=== PATIENT | female | born 1945 | race Caucasian/White ===

== ENCOUNTER 2016-08-07 07:29 | Inpatient (IN) ==
[2016-08-07] MEDS ORDERED: ATROPINE 1 MG/10 ML SYRINGE IV STA (07:38)
--- NOTE | 2016-08-07 07:43 | Emergency Department Note ---
Arrival - Arrival Chief Complaint: Syncope Stated Complaint: near syncope ED Nursing Triage Note: c/o having near syncope episode prior to arrival, denies having chest pain ,+ SOB., States "I feel like I am going to pass out that is coming and going " , " there is no ryme or reason for this", + nausea, Mode of Arrival: Stretcher Limitations: No Limitations Source: Patient Time Seen by Provider: 08/07/16 07:38 - History of Present Illness HPI Narrative: This 70-year-old white female presents with 1 month of increasingly more frequent periods of spontaneous near syncope irregardless if at rest or doing an activity. Today however she took her pulse while having 1 of these particularly severe and prolonged spells and found her heart rate to be in the 30s. EMS confirmed this on arrival at her residence and gave her a milligram of atropine at that time. The patient relates that at no time has she had any chest pain, shortness of breath, diaphoresis, nausea, or annia vomiting in association with these episodes. She relates also that she had a fall in last 2 days associated with this and now complains of bilateral shoulder pain and bilateral hip discomfort. She states she did hit her head but denies any serious pain with the incident or LOC. She is yet to pass out completely. Of note the history was difficult to obtain as the patient would not answer any queries directly currently at rest she is in no acute distress. Onset (ago): month(s) (Patient presents 1 month since onset of symptoms.) Allergies/Adverse Reactions: Allergies Allergy/AdvReac Type Severity Reaction Status Date / Time ciprofloxacin [From Cipro] Allergy Severe Swelling Verified 06/03/15 10:37 of Lip/Tongue/Throat ramipril [From Altace] Allergy Severe Cough Verified 06/03/15 10:38 rofecoxib [From Vioxx] Allergy Severe Swelling Verified 06/03/15 10:35 of Lip/Tongue/Throat clarithromycin [From Biaxin] Allergy Unknown Unknown/Unable Verified 06/03/15 10 :37 to obtain Penicillins Allergy Unknown Unknown/Unable Verified 06/03/15 10:35 to obtain PERSERVATIVES IN EYE GTTS Allergy Severe EYE Uncoded 06/03/15 10:38 SWELLING Home Medications: Home Medications Medication Instructions Recorded Confirmed Type Levothyroxine Tab [Synthroid Tab] 150 mcg PO DAILY 06/03/15 06/18/15 History Losartan/Hctz 50-12.5 [Hyzaar 1 tablet PO DAILY 06/03/15 06/18/15 History 50-12.5] Meloxicam 1 tablet PO DAILY 06/03/15 06/18/15 History Oxybutynin [Ditropan] 1 tablet PO DAILY 06/03/15 06/18/15 History Simvastatin 20 mg PO BEDTIME 06/03/15 06/18/15 History buPROPion HCl [Bupropion HCl Sr] 150 mg PO DAILY 06/03/15 06/18/15 History HYDROcodone/ACETAMIN 7.5-325 1 tablet PO Q4H PRN #0 tablet 06/20/15 Rx [[place] 7.5-325] HYDROcodone/ACETAMIN 7.5-325 2 tablet PO Q4H PRN #0 tablet 06/20/15 Rx [[place] 7.5-325] Review of System - Review of System 12 point system: reviewed and no additional remarkable complaints except as stated - Review of System Constitutional: Present: as per HPI Respiratory: Present: as per HPI Cardiovascular: Present: as per HPI Gastrointestinal: Present: as per HPI Medical,Surgical,& Family Hx - Medical History Cardio: History of: Hypertension HEENT: History of: Eye Problem (DRY), HEENT Problems (MEDIPORT INSERTION AND REMOVAL) Endocrine: History of: Thyroid Disorder (CANCER) Rheumatology: History of;: Rheumatoid Arthritis (R KNEE) Respiratory: History of: Respiratory Problems (SARCOID SPOTS UPPER PART LUNG HAD LUNG BX) Genitourinary: History of: Kidney Stones, Problems (UTI-HX) Gastrointestinal: History of: GI Problems (H PYLORIC GASTIRITIS) Reproductive: History of: Breast Cancer (RIGHT BREAST CHEMO RADIATION) - Surgical History Thoracic Surgeries: Surgical HX of;: Lithotripsy HEENT Surgeries: Surgical HX of: Eye Surgery (CATARACTS), Thyroid Surgery ( TOTAL THYROID), Tonsilectomy & Adenoidectomy Abdominal Surgeries: Surgical HX of: Appendectomy, Colonoscopy, EGD (ESOPHAGEAL DILATATION) Reproductive Surgeries: Surgical HX of;: Breast Surgery (LUMPECTOMY R BREAST), Hysterectomy Orthopedic Surgeries: Surgical HX of;: Total Knee Replacement (RIGHT) - Family History Family History: Reports;: Family Diabetes (MOM GRANDMOTHER 3 AUNTS), Family Stroke (MOM) - Social History Smoking Status: Never smoker Frequency of Alcohol Use: None Type of Drug Use: None Exam Physical Examination: GENERAL: Well developed, well nourished elderly white female in no acute distress. HEENT: Normocephalic. No trauma. Moist mucous membranes. EOMI. PERRLA. ENT NML NECK: Supple. No adenopathy. CARDIAC: irregular. No murmurs. Heart rate 32 CHEST: Bibasilar Velcro rales. No respiratory distress. O2 sat 99% ABDOMEN: Soft. Nontender. Active bowel sounds. EXTREMITIES: No trauma. Limitation in range of motion of both shoulders and hips due to discomfort. Lower extremities reveal no shortening or external rotation. No pedal edema. SKIN: No diaphoresis. No rash. NEURO: Alert. Oriented 3. Motor, sensory, vibratory intact. No focal deficits. Vital Signs: Vital Signs Temperature 97.8 F 08/07/16 07:30 Pulse Rate 78 08/07/16 08:57 Respiratory Rate 16 08/07/16 08:57 Blood Pressure 111/78 08/07/16 08:57 O2 Sat by Pulse Oximetry 100 08/07/16 08:57 Course Course Narrative: Patient given 1 mg of atropine with acceleration of rate to the 80s. This was similar to the experience of EMS in the field; however, the patient's rate deteriorated back to baseline in the 30s after approximately 15 minutes per EMS. Heart rate now 1 hour post dose is still in 70s peer Patient was to complete all her x-rays - Reevaluation(s) Reevaluation #1: Advised patient she will need hospitalization for further evaluation of her rhythm. - Consultations Consultation #1: Discussed with Dr. Garcia who will admit for further evaluation treatment peer Results - Labs CBC & BMP: 08/07/16 07:49 08/07/16 07:49 Labs: I reviewed the laboratory noted the negative cardiac's excepting for the greatly elevated BMP - Impressions EKG: Ventricular rhythm at rate of 32 with atrial rate of 64 consistent with complete heart block. diffuse nonspecific ST changes but no acute injury pattern noted - Diagnostic Findings Procedure: Chest x-ray: image reviewed by me, report reviewed by me ( Cardiomegaly with evidence of congestive failure as well as sarcoid changes including hilar adenopathy), CT: image reviewed by me, report reviewed by me ( Head: No acute injury noted), X-ray: image reviewed by me, report reviewed by me (Right shoulder: No acute injury noted) Disposition Clinical Impression: Complete heart block, Congestive heart failure, Pulmonary sarcoidosis, Right shoulder contusion Case discussed with: patient, patient's family Disposition: Still a Patient Condition: Guarded Time of Disposition: 09:19
[2016-08-07] MEDS ORDERED: ATROPINE 1 MG/1 ML VIAL ONE (07:48)
[2016-08-07 07:56] LABS: Basophils % 0.3 % (0.0-0.8); Eosinophils % 0.4 % (0.00-10.9); Hematocrit 42.5 VOL% (35.7-47.0); Hemoglobin 14.1 GM/DL (12.0-16.0); Immature Granulocytes % 0.5 %; Immature Granulocytes Absolute 0.05 #; Lymphocytes # 0.4 10*3/uL (1.4-4.0); Lymphocytes % 4.1 % (21.3-54.2); Mean Corpuscular HGB Conc 33.2 GM/DL (32-36); Mean Corpuscular Hemoglobin 29 PG (27-34); Mean Corpuscular Volume 88.4 FL (87-102); Mean Platelet Volume 10.3 FL (9.6-12.0); Monocytes # 0.6 10*3/uL (0.11-0.8); Monocytes % 6.7 % (1.7-12.7); Neutrophils # 8.2 10*3/uL (1.4-7.4); Platelet Count 225 T/CUMM (130-400); Red Blood Count 4.81 MC/CUMM (3.8-5.5); Red Cell Distribution Width 13.3 % (9.3-17.3); White Blood Count 9.4 T/CUMM (4-12)
[2016-08-07 08:04] LABS: PT Patient Result 10.8 SECS
[2016-08-07 08:19] LABS: Apearance,Urine CLEAR (Clear); Bacteria,Urine Occasional /HPF (Few); Bilirubin,Urine Negative (Negative); Blood, Urine Small mg/dL (Negative); Glucose,Urine (UA) Negative (Negative); Ketones,Urine Negative (Negative); Mucus,Urine Occasional /LPF (Occasional); Nitrite,Urine Negative (Negative); Protein,Urine Negative; RBC,Urine 44 /HPF (0-4); Squamous Epithelial Cell,Urine Occasional /HPF (0-10); Urine Color Yellow (Yellow); Urine Specific Gravity 1.017 (1.001-1.035); Urine Urobilinogen < 2.0 EU/DL (0.2-1.0); WBC,Urine 1 /HPF (0-6)
[2016-08-07 08:22] LABS: Eosinophils 1 % (0-10); Hypochromasia 1+; Lymphocytes 6 % (20-55); Platelet Estimate Adequate; Segmented Neutrophils 85 % (50-85); Total Cells Counted 100
[2016-08-07 08:34] LABS: Barbiturates Screen,Urine Negative (Negative); Benzodiazepines Screen,Urine Negative (Negative); Cannabinoid Screen,Urine Negative (Negative); Opiate Screen,Urine Negative (Negative); Phencyclidine Screen,Urine Negative (Negative)
[2016-08-07 08:36] LABS: Alanine Aminotransferase 204 U/L (13-56); Albumin 3.4 G/DL (3.4-5.0); Alkaline Phosphatase 84 U/L (45-117); Aspartate Amino Transferase 106 U/L (0-37); Blood Urea Nitrogen 25 MG/DL (7-18); Glucose 131 MG/DL (74-106); Osmolality,Calculated 288.1 MOS/KG (273-304); Sodium 142 MMOL/L (136-145); Total Protein 5.8 G/DL (6.4-8.3); Troponin I Only 0.034 NG/ML (0.00-0.045)
--- NOTE | 2016-08-07 08:37 | XRay Report ---
Portable chest Date: 08/07/2016 Clinical history: Shortness of breath Comparison: 03/14/2014 Technique: Portable AP sitting chest Findings: The heart is minimally enlarged with uncoiling of the aorta. 110 mm hiatal hernia. Progressive diffuse parenchymal findings especially at the lung bases with small pleural effusions. Stable mediastinum with postoperative findings in the right axilla. Osteopenia with degenerative changes. Impression: Minimal cardiomegaly with 110 mm hiatal hernia. Progressive parenchymal findings which can be seen with mild CHF, pneumonitis, etc. Patient reportedly has a history of sarcoidosis with CT proven lymphadenopathy. PROCEDURE INTERPRETED AT [facility] DEPARTMENT OF RADIOLOGY Final Report Signed by: Dr. June Millard
--- NOTE | 2016-08-07 08:39 | EKG Report ---
Stationary ECG Study [facility] ER Test Date: 08/07/2016 7:41:40 AM Pat Name: JOVANY ELLER Department: Room: Gender: F Tip Puncher: : 1945 Requested by: Nicolas Eubanks Order Number: [id number] Reading MD: GLADYS ALCANTAR Intervals [place] Rate: 32 P: 999 NE: 0 QRS: 132 QRSD: 148 T: 250 QT: 512 QTc: 390 Interpretive Statements NORMAL SINUS RHYTHM WITH COMPLETE HEART BLOCK AND AV DISSOCIATION WITH IDIOVENTRICULAR ESCAPE RHYTHM Electronically Signed On 08-07-16 10:10:07 CDT by GLADYS ALCANTAR [email or web address]
--- NOTE | 2016-08-07 08:41 | CT Report ---
Referring physician: Nicolas Jha Exam: CT brain without contrast Date: 08/07/2016 Comparison: None Reason: Head injury, status post fall Technique: Axial images of the head were obtained without the use of contrast. Total DLP was 1042.60 mGy*cm. Findings: No hydrocephalus or midline shift is present. There is no evidence of an acute infarction, recent intracranial hemorrhage or abnormal mass effect. Diffuse atrophy and cerebral hypodensities. The osseous structures appear intact. The mastoid air cells and visualized paranasal sinuses are clear. Impression: No acute intracranial abnormality is identified. Cerebral atrophy and microvascular disease. The CT exam was performed using one or more of the following dose reduction techniques: Automated exposure control and adjustment of the mA and/or kV according to patient size. PROCEDURE INTERPRETED AT [facility] DEPARTMENT OF RADIOLOGY Final Report Signed by: Dr. June Millard
--- NOTE | 2016-08-07 08:58 | XRay Report ---
Exam: XR shoulder 2V RT Date: 08/07/2016 8:18 AM Comparison: None Indication: Right shoulder pain Technique:[2 view right shoulder] Findings: AC joint arthropathy with inferior osteophytes. Postoperative findings in the right axilla. No definite fracture or dislocation. Impression: AC joint arthropathy with inferior osteophytes. No definite fracture or dislocation. PROCEDURE INTERPRETED AT [facility] DEPARTMENT OF RADIOLOGY Final Report Signed by: Dr. June Millard
[2016-08-07] MEDS ORDERED: FUROSEMIDE 40 MG/4 ML VIAL IV STA (09:11)
[2016-08-07] MEDS ORDERED: ONDANSETRON 4 MG/2 ML VIAL IV PRN (09:24)
[2016-08-07] MEDS ORDERED: FUROSEMIDE 40 MG/4 ML VIAL ONE (09:25)
--- NOTE | 2016-08-07 12:05 | Cardiology History & Physical ---
Assessment and Plan (1) Third degree heart block Status: Acute Assessment and plan: The patient had transient third-degree heart block and is now back to normal sinus rhythm. She is going to need a dual-chamber pacemaker. Given that she is currently in sinus rhythm we can plan to do this electively on Tuesday. Current Visit: Yes (2) Near syncope Status: Acute Assessment and plan: These spells are secondary to third-degree heart block. She is going to need dual-chamber pacemaker. Current Visit: Yes (3) Hypertension Status: Acute Current Visit: No (4) Sarcoid Status: Acute Current Visit: No (5) Right shoulder pain Status: Acute Assessment and plan: She fell and hit her right shoulder. X-ray shows no acute abnormality. If the symptoms persist we will get orthopedics to assist. Current Visit: Yes History of Present Illness History of present illness: Ms. Gallegos is a 70 year old female who has a history of hypertension, hyperlipidemia, sarcoidosis, and gastroesophageal reflux. For the last several months she has been having episodic spells of profound lightheadedness and near syncope. There are no specific exacerbating or relieving factors. The spells seem to be increasing in frequency and have been slowly progressive. She is not completely lost consciousness. She thought these spells were happening secondary to hypoglycemia. However, recently during 1 of these spells she checked her pulse and it was in the 30s. EMS was contacted and she was taken to the emergency room for treatment. She received atropine and her heart rate went back to normal. EKG during the period of bradycardia shows what appears to be a third-degree AV block. Her heart rate is generally in the 30s with a ventricular escape when she has the heart block. Right now she is in sinus rhythm with first-degree AV block. She denies any history of coronary artery disease or angina. She has not had any palpitations or syncope. She denies any fever, or chills. She denies any nausea or vomiting. She has no orthopnea , PND, or peripheral edema. She tells me that when she has 1 of these spells if she sits down and bends over with her head near the floor the spell would generally resolve. When the symptoms occur they are quite severe. In fact today when she went to get on a stool to bend over she lost her balance and fell on her right shoulder and now has some impairment in motion in the shoulder. X-ray of the shoulder was benign. She also had CT of the head which was benign. She is not on any rate slowing medications. Current Medications Hydrocodone Bitart/Acetaminophen ([place] 7.5-325) 1 tablet PO Q4H PRN PRN Reason: Pain Moderate (4-7) HCTZ/Losartan Potassium (Hyzaar 50-12.5) 1 tablet PO DAILY [facility] Ondansetron HCl (Zofran Inj) 4 mg IV Q4H PRN PRN Reason: Nausea/Vomiting Pantoprazole Sodium (Protonix Tab) 40 mg PO DAILY [facility] Simvastatin (Zocor) 20 mg PO BEDTIME [facility] Home Medications Medication Instructions Recorded Confirmed Type Losartan/Hctz 50-12.5 [Hyzaar 1 tablet PO DAILY 06/03/15 08/07/16 History 50-12.5] Meloxicam 1 tablet PO DAILY PRN 06/03/15 08/07/16 History Oxybutynin [Ditropan] 5 mg PO DAILY 06/03/15 08/07/16 History Simvastatin 20 mg PO DAILY 06/03/15 08/07/16 History buPROPion HCl [Bupropion HCl Sr] 150 mg PO DAILY 06/03/15 08/07/16 History Betamethasone Valerate 1 applic TOP BID PRN 08/07/16 08/07/16 History [Betamethasone Valerate 0.1% Lotion] Levothyroxine Tab [Synthroid Tab] 137 mcg PO DAILY@0700 08/07/16 08/07/16 History Metronidazole 1% Gel [Metrogel 1% 1 applic TOP DAILY PRN 08/07/16 08/07/16 History Gel] Allergies Allergy/AdvReac Type Severity Reaction Status Date / Time ciprofloxacin [From Cipro] Allergy Severe Swelling Verified 06/03/15 10:37 of Lip/Tongue/Throat ramipril [From Altace] Allergy Severe Cough Verified 06/03/15 10:38 rofecoxib [From Vioxx] Allergy Severe Swelling Verified 06/03/15 10:35 of Lip/Tongue/Throat clarithromycin [From Biaxin] Allergy Unknown Unknown/Unable Verified 06/03/15 10 :37 to obtain Penicillins Allergy Unknown Unknown/Unable Verified 06/03/15 10:35 to obtain PERSERVATIVES IN EYE GTTS Allergy Severe EYE Uncoded 06/03/15 10:38 SWELLING 12 point system: reviewed and no additional remarkable complaints except as stated Medical,Surgical,& Family Hx - Medical History Cardio: History of: Hypertension Psychological: History of: Anxiety Disorders (r/t cancer and concerns of new dx of lung CA) Neurology: History of: TIA, Vertigo HEENT: History of: Eye Problem (DRY), HEENT Problems (MEDIPORT INSERTION AND REMOVAL) Endocrine: History of: Thyroid Disorder (CANCER) Rheumatology: History of;: Rheumatoid Arthritis (R KNEE) Respiratory: History of: Lung Cancer (Possible r/t L lung nodule follow by oncology PET scan this year), Respiratory Problems (SARCOID SPOTS UPPER PART LUNG HAD LUNG BX) Genitourinary: History of: Kidney Stones, Problems (UTI-HX) Gastrointestinal: History of: GI Problems (H PYLORIC GASTIRITIS) Musculoskeletal: History of: Osteoporosis (Shoulders and hips) Reproductive: History of: Breast Cancer (RIGHT BREAST CHEMO RADIATION) Other: History of: Skin Problems (Recurrent Malar Rash) - Surgical History Thoracic Surgeries: Surgical HX of;: Lithotripsy Patient denies;: Lobectomy Neurologic Surgeries: Patient denies: Neurologic Surgery HEENT Surgeries: Surgical HX of: Eye Surgery (CATARACTS), Thyroid Surgery ( TOTAL THYROID), Tonsilectomy & Adenoidectomy Abdominal Surgeries: Surgical HX of: Appendectomy, Colonoscopy, EGD (ESOPHAGEAL DILATATION) Reproductive Surgeries: Surgical HX of;: Breast Surgery (LUMPECTOMY R BREAST), Hysterectomy Orthopedic Surgeries: Surgical HX of;: Total Knee Replacement (RIGHT) - Family History Family History: Reports;: Family Diabetes (MOM GRANDMOTHER 3 AUNTS), Family Stroke (MOM) - Social History Smoking Status: Never smoker Frequency of Alcohol Use: Occasionally Type of Drug Use: None Cardiology Physical Exam - Constitutional Vitals: Vital Signs Temp Pulse Resp BP Pulse Ox 97.7 F 82 20 114/73 93 L 08/07/16 10:05 08/07/16 10:05 08/07/16 10:05 08/07/16 10:05 08/07/16 10:05 Intake and Output 08/06/16 08/07/16 08/07/16 23:59 07:59 15:59 Other: Weight 86.183 kg 87.543 kg Patient Weight 08/07/16 23:59 Weight 87.543 kg Exam: General: Appears well developed, well nourished, no apparent distress HEENT: Normocephalic, atraumatic Neck: Supple Neck, Midline Trachea, No Bruit, No JVD Cardiac: Regular rhythm, 2 out of 6 murmur, no gallop, no rub Lungs: Clear to auscultation, No Wheeze, Rales, Rhonchi Neuro: Cranial Nerve 2-12 Intact, Motor Function Grossly Intact Abdomen: Soft, Active Bowel Sounds, No Masses, No Pulsations/Bruits Skin: Normal color, no rash Extremities: No Clubbing, No Cyanosis, No Edema, Normal Upper Extr. Pulses Musculoskeletal: No acute abnormality noted Psychiatric: The patient does not appear to be anxious or depressed Result/EKG - Labs CBC & BMP: 08/07/16 07:49 08/07/16 07:49 Lab Results: I have reviewed the past 24 hour labs Labs: Laboratory Results - last 24 hr 08/07/16 08/07/16 08/07/16 07:49 07:49 07:49 WBC 9.4 RBC 4.81 Hgb 14.1 Hct 42.5 MCV 88.4 MCH 29 MCHC 33.2 RDW 13.3 Plt Count 225 MPV 10.3 Neut % (Auto) 88.0 H Lymph % (Auto) 4.1 L [place] % (Auto) 6.7 Eos % (Auto) 0.4 Baso % (Auto) 0.3 Neut # (Auto) 8.2 H Lymph # (Auto) 0.4 L [place] # (Auto) 0.6 Eos # (Auto) 0.0 Baso # (Auto) 0.0 Total Counted 100 Immature Gran % 0.5 Nucleated RBC % 0.0 Immature Gran # 0.05 Segmented Neutrophils 85 Lymphocytes 6 L Monocytes 8 Eosinophils 1 Nucleated RBCs # 0.00 Platelet Estimate Adequate Hypochromasia 1+ INR 1.0 PT Patient/Control Mix 10.8 Sodium 142 Potassium 4.0 Chloride 108 H Carbon Dioxide 27 Anion Gap 11.0 BUN 25 H Creatinine 0.90 GFR Calculation 71 BUN/Creatinine Ratio 27.00 H Glucose 131 H Calculated Osmolality 288.1 Calcium 9.0 Total Bilirubin 0.90 AST 106 H ALT 204 H Alkaline Phosphatase 84 Total Creatine Kinase 62 CK-MB (CK-2) 1.4 Troponin I 0.034 B-Natriuretic Peptide Total Protein 5.8 L Albumin 3.4 Globulin 2.4 Albumin/Globulin Ratio 1.4 Urine Color Urine Appearance Urine pH Ur Specific [place] Urine Protein Urine Glucose (UA) Urine Ketones Urine Blood Urine Nitrate Urine Bilirubin Urine Urobilinogen Urine Leukocytes Urine RBC Urine WBC Ur Squamous Epith Cells Urine Bacteria Urine Mucus Ur Culture Indicated? Urine Opiates Screen Ur Barbiturates Screen Ur Phencyclidine Scrn U Amphetamine/Methamph U Benzodiazepines Scrn U Cocaine Metab Screen U Cannabinoids Screen 08/07/16 08/07/16 08/07/16 07:49 08:03 08:03 WBC RBC Hgb Hct MCV MCH MCHC RDW Plt Count MPV Neut % (Auto) Lymph % (Auto) [place] % (Auto) Eos % (Auto) Baso % (Auto) Neut # (Auto) Lymph # (Auto) [place] # (Auto) Eos # (Auto) Baso # (Auto) Total Counted Immature Gran % Nucleated RBC % Immature Gran # Segmented Neutrophils Lymphocytes Monocytes Eosinophils Nucleated RBCs # Platelet Estimate Hypochromasia INR PT Patient/Control Mix Sodium Potassium Chloride Carbon Dioxide Anion Gap BUN Creatinine GFR Calculation BUN/Creatinine Ratio Glucose Calculated Osmolality Calcium Total Bilirubin AST ALT Alkaline Phosphatase Total Creatine Kinase CK-MB (CK-2) Troponin I B-Natriuretic Peptide 650 H Total Protein Albumin Globulin Albumin/Globulin Ratio Urine Color Yellow Urine Appearance Clear Urine pH 6.0 Ur Specific [place] 1.017 Urine Protein Negative Urine Glucose (UA) Negative Urine Ketones Negative Urine Blood Small Urine Nitrate Negative Urine Bilirubin Negative Urine Urobilinogen < 2.0 H Urine Leukocytes Negative Urine RBC 44 Urine WBC 1 Ur Squamous Epith Cells Occasional Urine Bacteria Occasional Urine Mucus Occasional Ur Culture Indicated? Not indicated Urine Opiates Screen Negative Ur Barbiturates Screen Negative Ur Phencyclidine Scrn Negative U Amphetamine/Methamph Negative U Benzodiazepines Scrn Negative U Cocaine Metab Screen Negative U Cannabinoids Screen Negative - EKG EKG results: interpreted by me
[2016-08-07] MEDS ORDERED: ATROPINE 1 MG/10 ML SYRINGE IV PRN (12:08)
[2016-08-07 12:35] LABS: Free T4 (Free Thyroxine) 1.68 NG/DL (0.76-1.46); Thyroid Stimulating Hormone 0.241 uIU/ml (0.358-3.74)
[2016-08-07] MEDS: SIMVASTATIN 20 MG TABLET PO SCH (21:09)
[2016-08-08] MEDS ORDERED: ATROPINE 1 MG/1 ML VIAL IV ONE (05:44)
[2016-08-08] MEDS: LOSARTAN/HCTZ 50-12.5 MG TABLET PO SCH (09:05)
[2016-08-08] MEDS: PANTOPRAZOLE 40 MG TABLET PO SCH (09:05)
[2016-08-08] MEDS ORDERED: DIAZEPAM 5 MG TABLET PO ONE (10:13)
--- NOTE | 2016-08-08 10:18 | Cardiology Progress Note ---
Assessment and Plan (1) Third degree heart block Status: Acute Assessment and plan: The patient had a very long pause last night. I was planning to wait and do her pacemaker electively on Tuesday, but in light of this I think we need to go ahead and do it urgently at this time. Current Visit: Yes (2) Near syncope Status: Acute Assessment and plan: These spells are secondary to third-degree heart block. She is going to need dual-chamber pacemaker. Current Visit: Yes (3) Hypertension Status: Acute Current Visit: No (4) Sarcoid Status: Acute Current Visit: No (5) Right shoulder pain Status: Acute Assessment and plan: She fell and hit her right shoulder. X-ray shows no acute abnormality. Her shoulder is better today but is still sore. Current Visit: Yes Cardiology - PN: Subj Interval history: The patient had recurrence episodes of third-degree AV block. She had up to a 13 second pause last night. She responded to adenosine. I was planning to do her pacemaker electively tomorrow, but in light of her recurrent pauses, I think we need to go ahead and do this today. We discussed this and the patient understands and wishes to proceed. Current Medications Hydrocodone Bitart/Acetaminophen ([place] 7.5-325) 1 tablet PO Q4H PRN PRN Reason: Pain Moderate (4-7) Last Admin: 08/07/16 23:34 Dose: 1 tablet Atropine Sulfate () 1 mg IV PRN PRN PRN Reason: Heartrate < 40 Diazepam (Valium Tab) 10 mg PO ONCE ONE Stop: 08/08/16 10:14 HCTZ/Losartan Potassium (Hyzaar 50-12.5) 1 tablet PO DAILY [facility] Last Admin: 08/08/16 09:05 Dose: 1 tablet Sodium Chloride (Ns) 1,000 mls @ 75 mls/hr IV .[id number] [facility] Ondansetron HCl (Zofran Inj) 4 mg IV Q4H PRN PRN Reason: Nausea/Vomiting Pantoprazole Sodium (Protonix Tab) 40 mg PO DAILY [facility] Last Admin: 08/08/16 09:05 Dose: 40 mg Simvastatin (Zocor) 20 mg PO BEDTIME [facility] Last Admin: 08/07/16 21:09 Dose: Not Given Exam (Progress Note) - Constitutional Vitals: Period Temp Pulse Resp BP Sys/Sanchez Pulse Ox Last 24 Hr 98 F-99.4 F 78-85 18-20 102-125/53-80 93-97 Exam: General: Appears well developed, well nourished, no apparent distress HEENT: Normocephalic, atraumatic Neck: Supple Neck, Midline Trachea, No Bruit, No JVD Cardiac: Regular rhythm, 2/6 systolic murmur, no gallop, no rub Lungs: Clear to auscultation, No Wheeze, Rales, Rhonchi Neuro: Cranial Nerve 2-12 Intact, Motor Function Grossly Intact Abdomen: Soft, Active Bowel Sounds, No Masses, No Pulsations/Bruits Skin: Normal color, no rash Extremities: No Clubbing, No Cyanosis, No Edema, Normal Upper Extr. Pulses Musculoskeletal: No acute abnormality noted Psychiatric: The patient does not appear to be anxious or depressed Result/EKG - Labs CBC & BMP: 08/07/16 07:49 08/07/16 07:49 Lab Results: I have reviewed the past 24 hour labs Labs: Laboratory Results - last 24 hr 08/07/16 07:49 Free T4 1.68 H TSH 3rd Generation 0.241 L - EKG EKG results: interpreted by me
[2016-08-08] MEDS ORDERED: LIDOCAINE 1%/EPI INJ 20 ML VIAL ONE (10:47)
[2016-08-08] MEDS ORDERED: VANCOMYCIN 500 MG VIAL ONE (10:47)
[2016-08-08] MEDS: SODIUM CHLORIDE 0.9% 1,000 ML IV SCH (11:04)
[2016-08-08] MEDS ORDERED: HYDROmorphone 2 MG/1 ML VIAL ONE (11:29)
[2016-08-08] MEDS ORDERED: MIDAZOLAM 2 MG/2 ML VIAL ONE (11:29)
[2016-08-08] MEDS ORDERED: TISSUE ADHESIVE 1 EACH APPLICATOR TOP ONE (11:56)
--- NOTE | 2016-08-08 12:13 | Cardiac Pacemaker ---
- Preoperative diagnosis Date of Procedure:: 08/08/16 Preoperative Diagnosis: Documented nonreversible symptomatic bradycardia due to , third degree atrioventricular block Procedure: The patient has severe symptomatic third-degree AV block with up to 13 second documented pauses and is undergoing a dual-chamber pacemaker implant at this time. Procedures performed 1. Percutaneous left subclavian venotomy with sheath placement 2. Placement of atrial and ventricular leads with threshold testing 3. Placement of dual-chamber permanent (note, this is an MRI compatible pacemaker system) The patient had symptomatic bradycardia due to high grade heart block/sinus node dysfunction and needed a dual-chamber pacemaker. After informed consent was obtained was taken to catheter prepped and draped in usual sterile manner. We used minimal sedation for this case. We placed 2 J-tipped wires in the left subclavian vein using a modified Seldinger technique in the usual fashion. With then a pocket approximately 2 cm below the left clavicular border using blunt and sharp dissection as well as electrocautery. We then pulled our leads into the pocket from below. Using safe sheaths, we placed a Medtronic 5076-58 centimeter ventricular lead into the right ventricular apex and secured it with a helical coil. Serial number on the ventricular lead is [id number]. Excellent capture and sensing thresholds were achieved. We then used a Medtronic 5076-52 centimeter lead in the atrium. Serial number on the atrial lead was [id number]. Excellent capture and sensing thresholds were achieved. After the sheaths had been removed, we sutured the leads to the pocket floor using Ethibond suture. We then rinsed the pocket with antibiotic solution and then connected the leads to a Medtronic Advisa DR MRI compatible pacemaker model [id number]. Serial number on the pacemaker is [id number]. After the device give been connected to the leads, it was placed in the pocket and sutured pocket floor with Ethibond suture. We then closed the pocket 3 layers using Vicryl suture. We then applied a topical adhesive followed by Steri-Strips and a dressing. There were no apparent complications during the procedure. The patient remained stable throughout the procedure and will now be transferred back to her room for recovery. Anesthesia: minimal conscious sedation Surgeon / Physician: Froilan Garcia Estimated blood loss: minimal Condition: stable Disposition: floor - Medications / Follow-up
--- NOTE | 2016-08-08 12:40 | XRay Report ---
Portable chest Date: 08/08/2016 Clinical history: Lead placement Comparison: 08/07/2016 Technique: Portable AP sitting chest Findings: The heart is minimally enlarged with uncoiling of the aorta. Insertion of left subclavian atrioventricular pacemaker. No pneumothorax. Reduced parenchymal findings in the lungs. Postoperative findings in the right axilla with degenerative changes. Impression: Status post insertion of left subclavian atrioventricular pacemaker. No pneumothorax with improved mild CHF. PROCEDURE INTERPRETED AT [facility] DEPARTMENT OF RADIOLOGY Final Report Signed by: Dr. June Millard
--- NOTE | 2016-08-08 12:53 | EKG Report ---
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
[2016-08-08] MEDS: SIMVASTATIN 20 MG TABLET PO SCH (21:59)
[2016-08-09] MEDS: SODIUM CHLORIDE 0.9% 1,000 ML IV SCH (02:04)
--- NOTE | 2016-08-09 06:34 | EKG Report ---
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
[2016-08-09 07:58] VITALS: BP 111/83
[2016-08-09] MEDS: PANTOPRAZOLE 40 MG TABLET PO SCH (08:23)
[2016-08-09] MEDS: LOSARTAN/HCTZ 50-12.5 MG TABLET PO SCH (08:23)
--- NOTE | 2016-08-09 08:51 | Discharge Summary ---
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 Sutherland Ms. Gallegos, 70-year-old female presented to [facility] August 07, 2016 with near syncope. She has a past medical history of hypertension, hyperlipidemia, sarcoidosis and GERD. During her hospitalization, she was noted to have transient third-degree heart block. Subsequently, she had a dual-chamber pacemaker placed August 03, [address] Froilan Garcia. Post pacemaker placement, patient was transported back to the telemetry unit in stable condition. She has done well overnight and is without any complaints this morning. Pacemaker has been interrogated and appears to be functioning appropriately. Chest x-ray reveals correct lead placement. Post pacemaker instructions have been reviewed with the patient. She verbalizes understanding. She has been instructed to wear left arm sling until her follow- up appointment with Dr. Garcia. She verbalizes understanding. Pacemaker pocket looks good. She has been given a follow-up appointment with Dr. Garcia in 1 week. At that appointment her pacemaker will be interrogated and she will also have repeat chest x-ray. Patient is anxious for discharge home. Having felt that she has met maximal medical therapy, she will be discharged home in stable condition. Of note, patient's liver enzymes were elevated this hospitalization. AST 106 and ALT 204. Upon discharge, patient's simvastatin will be discontinued. She will have repeat LFTs drawn at her one-week follow-up appoint with Dr. Garcia. She will be discharged home on her preadmission medications. Patient verbalizes understanding of discharge instructions and discharge medications. Diagnosis - Discharge Diagnosis (1) Status post placement of cardiac pacemaker Status: Acute (2) Near syncope Status: Resolved (3) Third degree heart block Status: Resolved (4) Hypertension Status: Chronic (5) Sarcoid Status: Chronic Specialty Discharge - Follow Up or Referrals Follow up with: Froilan Garcia MD [Physician] - 1 Week (Patient will need a follow-up appointment with Dr. Garcia in 1 week with pacemaker interrogation, LFTs and chest x-ray. Patient prefers this appointment to be on a Tuesday, or Tuesday.) Discharge Plan - Discharge Data Disposition: Disch To Home/Self Care Condition at Discharge: Stable Discharge Diet: heart healthy Activity: other (Resume activity as tolerated with left arm sling intact until follow-up appointment with Dr. Garcia.) Hygiene: may shower Weight Bearing at Discharge: weight bear as tolerated Driving: not until seen by doctor Contact your physician if you experience:: fever over 101, Difficulty voiding, Redness or swelling, Nausea/Vomiting, Shortness of breath, Bleeding, pain uncontrolled by pain medications - Discharge Medications Continue Losartan/Hctz 50-12.5 [Hyzaar 50-12.5] 1 tablet PO DAILY Meloxicam 1 tablet PO DAILY PRN PRN Reason: Pain buPROPion HCl [Bupropion HCl Sr] 150 mg PO DAILY Oxybutynin [Ditropan] 5 mg PO DAILY Betamethasone Valerate [Betamethasone Valerate 0.1% Lotion] 1 applic TOP BID PRN PRN Reason: Agitation Metronidazole 1% Gel [Metrogel 1% Gel] 1 applic TOP DAILY PRN PRN Reason: Pain Levothyroxine Tab [Synthroid Tab] 137 mcg PO DAILY@0700 Discontinued Simvastatin 20 mg PO DAILY - Follow Up or Referral Follow Up: Froilan Garcia MD [Physician] - 1 Week (Patient will need a follow-up appointment with Dr. Garcia in 1 week with pacemaker interrogation, LFTs and chest x-ray. Patient prefers this appointment to be on a Tuesday, or Tuesday.) - Forms/Instructions Instructions: Pacemaker (DC) Exam - Constitutional Vitals: Period Temp Pulse Resp BP Sys/Sanchez Pulse Ox Last 24 Hr 97.1 F-100.6 F 72-93 18-20 99-124/67-83 93-98 Exam: General: Appears well with no apparent distress. Pleasant and cooperative. Appears comfortable. HEENT: PERRL, normocephalic, atraumatic. Mucous membranes moist. No jaundice noted. Conjunctiva moist and clear, sclerae anicteric Neck: No JVD/HJR, no thyromegaly or lymphadenopathy noted. No carotid bruit appreciated Cardiac: Regular rate and rhythm. No murmur rub or gallop. Lungs: Clear to auscultation without accessory muscle use to assist the respiratory pattern. Not requiring oxygen. Abdomen: Soft, bowel sounds normoactive. Nontender and nondistended. No abdominal bruit or thrill noted. No masses noted. Extremities: No clubbing, cyanosis noted. No edema noted. Upper extremity pulses 2+. Lower extremity pulses 2+. Capillary refill less than 3 seconds. Skin: No unusual lesions or rashes. No skin breakdown appreciated. Pacemaker pocket to left upper chest healing well. Neuro: Awake, alert and oriented 3. Moves all extremities well without hemiparesis or paralysis. No essential tremor is appreciated. Discharge Results Procedures and tests throughout hospitalization: Pending Orders 08/09/16 04:00 XR chest 2V IN AM Labs on day of discharge: Labs from last 24 hours 08/09/16 08/09/16 09:41 07:17 POC Glucose 134 H 102 - Imaging and Cardiology Cardiology Procedure: report reviewed by me Procedure: Chest x-ray: report reviewed by me DS: Provider Date of admission: 08/07/16 09:21 Primary care physician: Ilan Glass MD Attending physician on admission: Froilan Garcia MD Discharging clinician: Jackelin Killian NP Expected date of discharge: 08/09/16 <Leonel Dubois - Last Filed: 08/09/16 09:49> DS: Provider Primary care physician: Ilan Glass MD Patient examined and chart reviewed and discussed with nurse Jackelin Killian Pacer pocket looks good. No hematoma or discharge Telemetry shows normal pacing and sensing Pacer leads in good position on chest x-ray with no pneumo or infiltrate Home today Wound check and pacemaker follow-up with Dr. Garcia in 1 week Home meds as outlined
--- NOTE | 2016-08-09 08:58 | Physician Query Form ---
CLICK EDIT DOCUMENT TO SELECT QUERY ANSWER --> OK --> SIGN Taylor Cevallos RN, CCDS Certified Clinical Remote Broadcast Technician W) [phone] (f) [phone] [email or web address] PROVIDERS: Make your selection(s) from the choices in EACH section by typing an "x" and enter comments in the comment section. Please use your independent medical judgment in providing your response. This request does not imply that any particular answer is desired or expected. CLINICAL INDICATORS: (Providers should not edit this section) The medical record indicates that the patient was admitted with complete heart block, Impression in the ER also with "Congestive Heart Failure", "Bibasilar Velcro rales", BNP 650#, and was treated with 40 Mg of IV Lasix in the ER. ---- "Chest x-ray: image reviewed by me, report reviewed by me ( Cardiomegaly with evidence of congestive failure as well as sarcoid changes including hilar adenopathy)" Please provide further specificity regarding CHF. ACUITY: ( x) Acute ( ) Chronic ( ) Acute on Chronic ( ) Clinically unable to determine TYPE: ( ) Systolic (HFrEF - heart failure with reduced systolic function/EF) ( ) Diastolic (HFpEF - heart failure with preserved systolic function/EF) ( ) Combined Systolic/Diastolic ( x) Other, please specify: Secondary to bradycardia/heart block ( ) Clinically unable to determine ( ) The patient does NOT have CHF COMMENTS: PLEASE ALSO DOCUMENT RESPONSE IN PROGRESS NOTES AND/OR DISCHARGE SUMMARY Use of terms such as suspected, likely, or probable (associated with a specific diagnosis that is being evaluated, monitored, or treated as if it exists) are acceptable and can be restated in the discharge summary if not ruled out. MTDD
--- NOTE | 2016-08-09 09:54 | XRay Report ---
Exam: XR chest 2V Date: 08/09/2016 4:00 AM Indication: Lead placement Comparison: 08/08/2016 Technical: PA lateral Findings: Cardiomegaly is present with a left-sided cardiac pacing device with atrial and ventricular leads. Dilated bowel present within the upper abdomen involving the hepatic and splenic flexure region. Surgical clips present right axillary region. Bony structures are intact. The mediastinum is otherwise unremarkable. Impression: 1. Cardiomegaly stable position cardiac pacing device 2. Previous right axillary dissection 3. Abdominal ileus pattern versus obstructive process. Follow-up abdomen series may be beneficial PROCEDURE INTERPRETED AT [facility] DEPARTMENT OF RADIOLOGY Final Report Signed by: Dr. Brandon Watson
== END 2016-08-09 10:38 | disposition home or self-care (01) | DRG 244 ==
LOC: EDUNIT# → EDBD → N.ED 07:29 → N.EDINP 09:39 → N.TELES 10:06
PROVIDERS: ADMIT Internal Medicine Cardiovascular Disease; ATTEND Internal Medicine Cardiovascular Disease

== ENCOUNTER 2016-08-10 12:57 | Inpatient (IN) ==
--- NOTE | 2016-08-10 13:38 | XRay Report ---
XR chest 2V Indication: Status post pacemaker check lead placement Comparison: Chest x-ray dated August 09, 2016 Technique: Frontal and lateral views of the chest. Findings: Continued cardiomegaly. Pacemaker apparatus again demonstrated. Chronic change of the lungs without focal consolidation, pleural effusion, or pneumothorax. Visualized osseous and surrounding soft tissue structures appear grossly unchanged. IMPRESSION: Stable chest x-ray. Continued cardiomegaly without annia pulmonary edema. PROCEDURE INTERPRETED AT [facility] DEPARTMENT OF RADIOLOGY Final Report Signed by: Dr Gurwinder Boateng
[2016-08-10] MEDS ORDERED: MAGNESIUM SULF RIDER 2 GM in PREMIX 1 EACH IV PRN ×2 (16:52→18:11)
[2016-08-10] MEDS ORDERED: POTASSIUM CHLORIDE RIDER 10 MEQ in PREMIX 1 EACH IV PRN (16:52)
[2016-08-10] MEDS ORDERED: MAGNESIUM SULF RIDER 4 GM in PREMIX 1 EACH IV PRN (16:52)
[2016-08-10] MEDS ORDERED: ONDANSETRON 4 MG/2 ML VIAL IV PRN (16:52)
[2016-08-10] MEDS ORDERED: ZALEPLON 5 MG CAPSULE PO PRN (16:52)
[2016-08-10] MEDS ORDERED: METRONIDAZOLE 1% TOP PRN (16:54)
[2016-08-10] MEDS ORDERED: BETAMETHASONE VALERATE TOP PRN (16:54)
[2016-08-10] MEDS ORDERED: ENOXAPARIN 80 MG/0.8 ML SYRINGE SUBCUT ONE (17:00)
[2016-08-10] MEDS ORDERED: ENOXAPARIN 80 MG/0.8 ML SYRINGE SUBCUT SCH (17:00)
[2016-08-10] MEDS ORDERED: ENOXAPARIN 100 MG/ML SYRINGE SUBCUT ONE (17:41)
[2016-08-10] MEDS ORDERED: NITROGLYCERIN SL 0.4 MG TABLET SL ONE (17:49)
[2016-08-10] MEDS: NITROGLYCERIN SL 0.4 MG TABLET SL PRN ×2 (17:50→17:55)
[2016-08-10] MEDS: ASPIRIN CHEW 81 MG TABLET PO SCH (18:06)
[2016-08-10 18:09] LABS: Basophils % 0.1 % (0.0-0.8); Eosinophils # 0.1 10*3/uL (0.0-0.87); Eosinophils % 0.7 % (0.00-10.9); Hematocrit 44.1 VOL% (35.7-47.0); Hemoglobin 14.5 GM/DL (12.0-16.0); Immature Granulocytes % 0.5 %; Immature Granulocytes Absolute 0.04 #; Lymphocytes # 0.6 10*3/uL (1.4-4.0); Lymphocytes % 7.2 % (21.3-54.2); Mean Corpuscular HGB Conc 32.9 GM/DL (32-36); Mean Corpuscular Hemoglobin 29 PG (27-34); Mean Corpuscular Volume 89.5 FL (87-102); Mean Platelet Volume 10.3 FL (9.6-12.0); Monocytes # 0.9 10*3/uL (0.11-0.8); Monocytes % 12.2 % (1.7-12.7); Neutrophils # 6.1 10*3/uL (1.4-7.4); Neutrophils % 79.3 % (38.7-73.9); Platelet Count 194 T/CUMM (130-400); Red Blood Count 4.93 MC/CUMM (3.8-5.5); Red Cell Distribution Width 13.3 % (9.3-17.3); White Blood Count 7.7 T/CUMM (4-12)
--- NOTE | 2016-08-10 18:09 | History and Physical Update ---
Sedation H&P Update - History and Physical H&P was reviewed, the patient examined and there: are no changes in the patients condition since last H&P was completed. - Dictation Physical: refer to scanned H&P - Physical Exam Mental Status: alert and oriented Heart: regular rate and rhythm Lung: clear to auscultation Abdomen: within normal limits Vitals: within normal limits - Sedation Plan for Sedation: moderate Patient Consent: Procedure disscussed with patient and patinet has consented., Risks and benefits were discussed with patient,including infection,, bleeding, injury to surrounding structures, seizure, temporary nerve, Patient understands and accepts potential risks/benefits and agrees to, proceed. ASA Class: IV Airway Assessment: Class II: Soft palate, uvula, fauces visible
--- NOTE | 2016-08-10 18:09 | Event Note ---
I have personally interviewed and examined the patient, reviewed the chart. The patient was seen by Dr. Garcia today in clinic, I have read his history and physical (clinic note). In brief, the patient was just discharged from the hospital yesterday. She was admitted with syncope, found to have severe complete heart block, and underwent permanent pacemaker implantation. She was discharged home yesterday, but awoke this morning at 330 with heart pounding, severe diaphoresis and a generalized sense of unwellness. She called the clinic and was assessed. The device was interrogated which demonstrated appropriate pacemaker function, but also an episode of ventricular tachycardia that corresponded with her symptoms. Echocardiogram demonstrated an ejection fraction of 25% with a possible LV thrombus. Dr. Garcia called me and discussed the case, and the patient is being scheduled for left heart catheterization in the morning to rule out an ischemic cause of her symptoms. Her clinical presentation is also somewhat clouded by concomitant sarcoidosis. She has had ongoing symptoms of chest pain which she has attributed to her sarcoid, they have not necessarily been exertional. Upon admission she acknowledges left jaw pain which is new, since admission. This has improved with sublingual nitroglycerin. She denies IVP dye allergy, or bleeding complications. She has had breast cancer and thyroid cancer, and also has some "hot nodules" in her lungs at this time which are being monitored, and is unclear whether this is related to her sarcoidosis or could represent a malignant entity. Her TSH appears to be overtreated upon review of her prior admission labs, so I am going to decrease her levothyroxine and also add beta-jesus manuel. I am going to decrease her ARB because we are adding the beta-jesus manuel. We will also give her Nitropaste. We will cycle her cardiac biomarkers, and begin anticoagulation therapy. I have discussed the role, risks and benefits of cardiac catheterization with the patient and she is agreeable to proceeding.
[2016-08-10] MEDS ORDERED: WARFARIN 5 MG TABLET PO ONE (18:10)
[2016-08-10] MEDS ORDERED: DIAZEPAM 5 MG TABLET PO ONE (18:11)
[2016-08-10] MEDS ORDERED: diphenhydrAMINE CAP 25 MG CAPSULE PO ONE (18:11)
[2016-08-10 18:28] LABS: Calcium 8.7 MG/DL (8.5-10.1); Magnesium 2.3 MG/DL (1.8-2.4); Osmolality,Calculated 286.1 MOS/KG (273-304); Potassium 3.7 MMOL/L (3.5-5.1)
[2016-08-10 19:25] LABS: INR 1.1; PT Patient Result 11.2 SECS
[2016-08-10] MEDS ORDERED: NITROGLYCERIN SL 0.4 MG TABLET SL PRN ×2 (21:29→21:33)
--- NOTE | 2016-08-10 21:45 | XRay Report ---
Portable chest Date: 08/10/2016 Clinical history: Chest pain Comparison: 08/10/2016 Technique: Portable AP sitting chest Findings: Stable cardiomegaly and left subclavian atrioventricular permanent pacemaker. Progressive parenchymal findings especially at the lung bases. Postoperative findings in the right axilla with stable mediastinum. Degenerative changes are noted. Impression: Stable cardiomegaly and left subclavian atrioventricular permanent pacemaker. Mild CHF with minimal atelectasis and probable small pleural effusions. PROCEDURE INTERPRETED AT [facility] DEPARTMENT OF RADIOLOGY Final Report Signed by: Dr. June Millard
[2016-08-10] MEDS ORDERED: EPTIFIBATIDE 20,000 MCG/10 ML VIAL IV ONE (21:52)
[2016-08-10 22:09] LABS: Magnesium 2.1 MG/DL (1.8-2.4); Troponin I Only 0.016 NG/ML (0.00-0.045)
[2016-08-10 22:19] LABS: Troponin I Only 0.016 NG/ML (0.00-0.045)
[2016-08-10] MEDS: EPTIFIBATIDE 75 MG/100 ML BOTTLE IV SCH (23:04)
[2016-08-10] MEDS: NITROGLYCERIN 2% OINT 1 INCH/GM PACK TOP SCH (23:10)
[2016-08-11] MEDS: METOPROLOL TARTRATE 25 MG TABLET PO SCH ×3 (00:06→23:45)
[2016-08-11] MEDS: ACETAMINOPHEN 325 MG TABLET PO PRN (00:44)
[2016-08-11] MEDS: MORPHINE 2 MG/1 ML SYRINGE IV PRN ×2 (00:45→05:32)
[2016-08-11 04:23] LABS: Basophils % 0.1 % (0.0-0.8); Hematocrit 39.5 VOL% (35.7-47.0); Immature Granulocytes % 0.5 %; Immature Granulocytes Absolute 0.06 #; Lymphocytes # 0.4 10*3/uL (1.4-4.0); Lymphocytes % 3.1 % (21.3-54.2); Mean Corpuscular HGB Conc 32.9 GM/DL (32-36); Mean Corpuscular Hemoglobin 29 PG (27-34); Mean Corpuscular Volume 87.4 FL (87-102); Mean Platelet Volume 11.4 FL (9.6-12.0); Monocytes # 1.3 10*3/uL (0.11-0.8); Monocytes % 11.1 % (1.7-12.7); Neutrophils # 9.9 10*3/uL (1.4-7.4); Neutrophils % 85.2 % (38.7-73.9); Platelet Count 186 T/CUMM (130-400); Red Blood Count 4.52 MC/CUMM (3.8-5.5); Red Cell Distribution Width 13.3 % (9.3-17.3); White Blood Count 11.6 T/CUMM (4-12)
[2016-08-11 04:32] LABS: INR 1.1; PT Patient Result 11.4 SECS
--- NOTE | 2016-08-11 04:34 | EKG Report ---
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
[2016-08-11 04:54] LABS: Calcium 8.5 MG/DL (8.5-10.1); Cholesterol 160 MG/DL (50-200); HDL Cholesterol 76 MG/DL (40-60); Magnesium 2.2 MG/DL (1.8-2.4); Osmolality,Calculated 276.7 MOS/KG (273-304); Potassium 3.3 MMOL/L (3.5-5.1); Risk Ratio 2.11; Triglycerides 60 MG/DL (2-150); Troponin I Only < 0.015 NG/ML (0.00-0.045)
[2016-08-11 05:04] LABS: Lymphocytes 9 % (20-55); Platelet Estimate Normal; Segmented Neutrophils 81 % (50-85); Total Cells Counted 100
[2016-08-11] MEDS: EPTIFIBATIDE 75 MG/100 ML BOTTLE IV SCH (05:17)
[2016-08-11] MEDS: NITROGLYCERIN 2% OINT 1 INCH/GM PACK TOP SCH (05:18)
[2016-08-11] MEDS: POTASSIUM CHLORIDE RIDER 10 MEQ in PREMIX 1 EACH IV PRN ×2 (05:35→06:25)
[2016-08-11] MEDS: LEVOTHYROXINE 100 MCG TABLET PO SCH (06:25)
[2016-08-11] MEDS ORDERED: LEVOTHYROXINE 137 MCG TABLET PO SCH (07:00)
[2016-08-11] MEDS ORDERED: LIDOCAINE 1% 20 ML VIAL ONE (08:12)
[2016-08-11] MEDS ORDERED: HEPARIN/NACL 0.9% 2 UNITS/ML 1,000 ML IV ONE (08:12)
[2016-08-11] MEDS ORDERED: SODIUM BICARBONATE 2.4 MEQ/5 ML VIAL ONE (08:13)
[2016-08-11] MEDS ORDERED: DIAZEPAM 5 MG TABLET ONE (08:13)
[2016-08-11] MEDS ORDERED: diphenhydrAMINE CAP 25 MG CAPSULE ONE (08:14)
[2016-08-11] MEDS ORDERED: fentaNYL 100 MCG/2 ML VIAL ONE (08:17)
[2016-08-11] MEDS ORDERED: MIDAZOLAM 2 MG/2 ML VIAL ONE (08:17)
[2016-08-11] MEDS: OXYBUTYNIN 5 MG TABLET PO SCH ×2 (08:23→08:27)
[2016-08-11] MEDS: buPROPion SR 150 MG TABLET PO SCH (08:23)
[2016-08-11] MEDS: ASPIRIN CHEW 81 MG TABLET PO SCH (08:23)
[2016-08-11] MEDS ORDERED: LOSARTAN/HCTZ 50-12.5 MG TABLET PO SCH (09:00)
[2016-08-11] MEDS ORDERED: LOSARTAN 25 MG TABLET PO SCH (09:00)
--- NOTE | 2016-08-11 09:04 | EKG Report ---
Please refer to the EKG image. Final interpretation is pending.
[2016-08-11] MEDS ORDERED: SODIUM CHLORIDE 0.45% 1,000 ML IV SCH (10:00)
--- NOTE | 2016-08-11 10:13 | Cardiology Operative Report ---
Date of Procedure:: 08/11/16 Pre-op diagnosis: Ventricular tachycardia, cardiomyopathy Post-op diagnosis: same Procedure: 1. Selective left and right coronary angiography. 2. Right iliac angiography to rule out vascular complications. 3. Left heart catheterization not performed to suspicion of left ventricular thrombus. Impression: 1. Mild atherosclerosis of the coronary arteries, sluggish outflow. 2. Right dominant coronary arteries. 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 4. Angiographically normal right iliac artery without evidence of vascular complications. Plan: 1. Medical management. 2. Consider upgrading pacemaker device to defibrillator. Equipment: Diagnostic 6 Somali JL4, JR4. Hemodynamics: Aortic pressure 75/50 mmHg Sedation: Versed 2 mg, fentanyl 50 mcg Procedure: After informed consent was obtained the patient was prepped and draped in sterile fashion. The right groin was infiltrated with 1% lidocaine and the right femoral artery was accessed via modified Seldinger technique using a micropuncture needle and a 6 Somali femoral arterial sheath was placed. All catheter exchanges were performed over a guidewire under fluoroscopic guidance. Diagnostic 6 Somali JL4 and JR4 catheters were advanced to the left and right coronary arteries respectively and multiple cineangiograms were performed in varying degrees of obliquity and angulation. At conclusion of the procedure right iliac angiography was performed to rule out vascular complications. Findings: 1. The left main artery is angiographically normal. 2. The left anterior descending artery extends to the apex and wraps around. There are mild luminal irregularities but no significant stenosis. 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 3. There is not an intermediate ramus branch. 4. The circumflex artery gives rise to 2 marginal arteries and then continues along the AV groove. It is free of significant disease. 5. The right coronary artery is a dominant vessel with mild luminal irregularities but no significant stenosis. 6. The right iliac artery is angiographically normal without evidence of vascular complications. Contrast use: Omnipaque 80 cc Fluoro time: 1.8 minutes Complications: none Specimens removed: none Devices implanted: none Anesthesia: moderate conscious sedation Surgeon / Physician: Marcie Mendenhall Groover Operator: other (Meghan Penny) Estimated blood loss: minimal Specimens: none sent Condition: stable Disposition: floor
--- NOTE | 2016-08-11 11:08 | Cardiology Progress Note ---
Cardiology - PN: Subj Interval history: Cardiology note 70-year-old woman with a history of sarcoidosis status post Medtronic dual- chamber pacemaker for third-degree heart block. Admitted for cath today because of increasing shortness of breath. Echo in the office yesterday showed ejection fraction of 25% with mild MR and mild TR. Cardiac cath today showed patent coronaries. No LV gram done to conserve dye. Patient has a nonischemic cardia myopathy. Plan groin precautions discussed. Device upgrade Exam (Progress Note) - Constitutional Vitals: Period Temp Pulse Resp BP Sys/Sanchez Pulse Ox Last 24 Hr 98.2 F-100.2 F 65-96 18-20 77-130/47-71 92-95 Result/EKG - Labs CBC & BMP: 08/11/16 02:56 08/11/16 02:56 Labs: Laboratory Results - last 24 hr 08/10/16 08/10/16 08/10/16 18:01 18:01 18:01 WBC 7.7 RBC 4.93 Hgb 14.5 Hct 44.1 MCV 89.5 MCH 29 MCHC 32.9 RDW 13.3 Plt Count 194 MPV 10.3 Neut % (Auto) 79.3 H Lymph % (Auto) 7.2 L [place] % (Auto) 12.2 Eos % (Auto) 0.7 Baso % (Auto) 0.1 Neut # (Auto) 6.1 Lymph # (Auto) 0.6 L [place] # (Auto) 0.9 H Eos # (Auto) 0.1 Baso # (Auto) 0.0 Total Counted Immature Gran % 0.5 Nucleated RBC % 0.0 Immature Gran # 0.04 Segmented Neutrophils Lymphocytes Monocytes Nucleated RBCs # 0.00 Platelet Estimate Pappenheimer Bodies INR PT Patient/Control Mix Sodium 142 Potassium 3.7 Chloride 102 Carbon Dioxide 32 Anion Gap 11.7 BUN 20 H Creatinine 0.80 GFR Calculation 82 BUN/Creatinine Ratio 25.00 H Glucose 125 H POC Glucose Calculated Osmolality 286.1 Calcium 8.7 Magnesium 2.3 Total Creatine Kinase CK-MB (CK-2) Troponin I B-Natriuretic Peptide 268 H Triglycerides Cholesterol LDL Cholesterol VLDL Cholesterol HDL Cholesterol Heart Disease Risk Ratio 08/10/16 08/10/16 08/10/16 18:05 18:48 21:30 WBC RBC Hgb Hct MCV MCH MCHC RDW Plt Count MPV Neut % (Auto) Lymph % (Auto) [place] % (Auto) Eos % (Auto) Baso % (Auto) Neut # (Auto) Lymph # (Auto) [place] # (Auto) Eos # (Auto) Baso # (Auto) Total Counted Immature Gran % Nucleated RBC % Immature Gran # Segmented Neutrophils Lymphocytes Monocytes Nucleated RBCs # Platelet Estimate Pappenheimer Bodies INR 1.1 PT Patient/Control Mix 11.2 Sodium Potassium Chloride Carbon Dioxide Anion Gap BUN Creatinine GFR Calculation BUN/Creatinine Ratio Glucose POC Glucose Calculated Osmolality Calcium Magnesium 2.1 Total Creatine Kinase 90 D CK-MB (CK-2) 1.3 Troponin I 0.016 0.016 B-Natriuretic Peptide Triglycerides Cholesterol LDL Cholesterol VLDL Cholesterol HDL Cholesterol Heart Disease Risk Ratio 08/11/16 08/11/16 08/11/16 02:56 02:56 02:56 WBC 11.6 D RBC 4.52 Hgb 13.0 Hct 39.5 MCV 87.4 MCH 29 MCHC 32.9 RDW 13.3 Plt Count 186 MPV 11.4 Neut % (Auto) 85.2 H Lymph % (Auto) 3.1 L [place] % (Auto) 11.1 Eos % (Auto) 0.0 Baso % (Auto) 0.1 Neut # (Auto) 9.9 H Lymph # (Auto) 0.4 L [place] # (Auto) 1.3 H Eos # (Auto) 0.0 Baso # (Auto) 0.0 Total Counted 100 Immature Gran % 0.5 Nucleated RBC % 0.0 Immature Gran # 0.06 Segmented Neutrophils 81 Lymphocytes 9 L Monocytes 10 Nucleated RBCs # 0.00 Platelet Estimate Normal Pappenheimer Bodies Mirror Machine Feeder INR PT Patient/Control Mix Sodium 138 Potassium 3.3 L Chloride 101 Carbon Dioxide 27 Anion Gap 13.3 BUN 14 Creatinine 0.60 GFR Calculation 101 BUN/Creatinine Ratio 23.00 H Glucose 121 H POC Glucose Calculated Osmolality 276.7 Calcium 8.5 Magnesium 2.2 Total Creatine Kinase 68 D CK-MB (CK-2) < 1.0 Troponin I < 0.015 B-Natriuretic Peptide Triglycerides 60 Cholesterol 160 LDL Cholesterol 80.0 VLDL Cholesterol 12.0 HDL Cholesterol 76 H Heart Disease Risk Ratio 2.11 08/11/16 08/11/16 02:56 07:10 WBC RBC Hgb Hct MCV MCH MCHC RDW Plt Count MPV Neut % (Auto) Lymph % (Auto) [place] % (Auto) Eos % (Auto) Baso % (Auto) Neut # (Auto) Lymph # (Auto) [place] # (Auto) Eos # (Auto) Baso # (Auto) Total Counted Immature Gran % Nucleated RBC % Immature Gran # Segmented Neutrophils Lymphocytes Monocytes Nucleated RBCs # Platelet Estimate Pappenheimer Bodies INR 1.1 PT Patient/Control Mix 11.4 Sodium Potassium Chloride Carbon Dioxide Anion Gap BUN Creatinine GFR Calculation BUN/Creatinine Ratio Glucose POC Glucose 135 H Calculated Osmolality Calcium Magnesium Total Creatine Kinase CK-MB (CK-2) Troponin I B-Natriuretic Peptide Triglycerides Cholesterol LDL Cholesterol VLDL Cholesterol HDL Cholesterol Heart Disease Risk Ratio Specialty Discharge - Follow Up or Referrals
[2016-08-11] MEDS ORDERED: WARFARIN 5 MG TABLET PO SCH (18:00)
[2016-08-11 20:59] LABS: Apearance,Urine CLEAR (Clear); Bacteria,Urine Moderate /HPF (Few); Bilirubin,Urine Negative (Negative); Blood, Urine Negative (Negative); Glucose,Urine (UA) Negative (Negative); Ketones,Urine Negative (Negative); Mucus,Urine Occasional /LPF (Occasional); Nitrite,Urine Negative (Negative); Protein,Urine Negative; RBC,Urine 1 /HPF (0-4); Squamous Epithelial Cell,Urine Few /HPF (0-10); Urine Color Yellow (Yellow); Urine Specific Gravity 1.036 (1.001-1.035); WBC,Urine 4 /HPF (0-6)
[2016-08-11] MEDS: PANTOPRAZOLE 40 MG TABLET PO SCH (21:09)
[2016-08-11] MEDS: ENOXAPARIN 80 MG/0.8 ML SYRINGE SUBCUT SCH (21:10)
[2016-08-11] MEDS ORDERED: NITROGLYCERIN 2% OINT 1 INCH/GM PACK TOP SCH ×2 (21:57)
[2016-08-12 06:07] LABS: Basophils % 0.4 % (0.0-0.8); Eosinophils # 0.1 10*3/uL (0.0-0.87); Eosinophils % 0.7 % (0.00-10.9); Immature Granulocytes % 0.5 %; Immature Granulocytes Absolute 0.04 #; Lymphocytes # 0.5 10*3/uL (1.4-4.0); Lymphocytes % 5.8 % (21.3-54.2); Mean Corpuscular HGB Conc 32.5 GM/DL (32-36); Mean Corpuscular Hemoglobin 29 PG (27-34); Mean Corpuscular Volume 89.3 FL (87-102); Mean Platelet Volume 11.5 FL (9.6-12.0); Monocytes # 1.1 10*3/uL (0.11-0.8); Monocytes % 12.5 % (1.7-12.7); Neutrophils # 6.8 10*3/uL (1.4-7.4); Neutrophils % 80.1 % (38.7-73.9); Platelet Count 158 T/CUMM (130-400); Red Blood Count 4.48 MC/CUMM (3.8-5.5); Red Cell Distribution Width 13.4 % (9.3-17.3); White Blood Count 8.5 T/CUMM (4-12)
[2016-08-12 06:38] LABS: Calcium 8.5 MG/DL (8.5-10.1); Magnesium 2.2 MG/DL (1.8-2.4); Osmolality,Calculated 272.8 MOS/KG (273-304); Potassium 3.8 MMOL/L (3.5-5.1)
[2016-08-12] MEDS: ASPIRIN CHEW 81 MG TABLET PO SCH (09:09)
[2016-08-12] MEDS: buPROPion SR 150 MG TABLET PO SCH (09:09)
[2016-08-12] MEDS: PANTOPRAZOLE 40 MG TABLET PO SCH ×2 (09:09→21:36)
[2016-08-12] MEDS: LEVOTHYROXINE 100 MCG TABLET PO SCH (09:09)
[2016-08-12] MEDS: ENOXAPARIN 80 MG/0.8 ML SYRINGE SUBCUT SCH ×2 (09:10→21:33)
[2016-08-12] MEDS: METOPROLOL TARTRATE 25 MG TABLET PO SCH ×2 (09:10→21:34)
[2016-08-12] MEDS: OXYBUTYNIN 5 MG TABLET PO SCH (09:10)
--- NOTE | 2016-08-12 11:37 | Cardiology Progress Note ---
Cardiology - PN: Subj Interval history: Cardiology note No temperature. Telemetry shows sinus rhythm with ventricular pacing 02 Sat 93 on 2 L Regular rhythm no murmur or gallop Clear lungs Abdomen soft benign. Lab data White count 8.5 hemoglobin 13.0 hematocrit 40.0 Sodium 137 potassium 3.8 chloride 102 CO2 25 BUN 16 creatinine 0.60 Magnesium 2.2 Impression Sarcoidosis status post Medtronic dual-chamber pacemaker for third-degree heart block Nonischemic cardia myopathy EF 25% Patent coronaries Nonsustained VT Plan Dr. Garcia to upgrade device tomorrow for primary prevention Will DC Lovenox after tonight's dose Exam (Progress Note) - Constitutional Vitals: Period Temp Pulse Resp BP Sys/Sanchez Pulse Ox Last 24 Hr 96.9 F-98.5 F 60-84 16-18 81-112/42-64 90-95 Result/EKG - Labs CBC & BMP: 08/12/16 04:55 08/12/16 04:55 Labs: Laboratory Results - last 24 hr 08/11/16 08/12/16 08/12/16 20:25 04:55 04:55 WBC 8.5 RBC 4.48 Hgb 13.0 Hct 40.0 MCV 89.3 MCH 29 MCHC 32.5 RDW 13.4 Plt Count 158 MPV 11.5 Neut % (Auto) 80.1 H Lymph % (Auto) 5.8 L [place] % (Auto) 12.5 Eos % (Auto) 0.7 Baso % (Auto) 0.4 Neut # (Auto) 6.8 Lymph # (Auto) 0.5 L [place] # (Auto) 1.1 H Eos # (Auto) 0.1 Baso # (Auto) 0.0 Immature Gran % 0.5 Nucleated RBC % 0.0 Immature Gran # 0.04 Nucleated RBCs # 0.00 Sodium 137 Potassium 3.8 Chloride 102 Carbon Dioxide 25 Anion Gap 13.8 BUN 16 Creatinine 0.60 GFR Calculation 102 BUN/Creatinine Ratio 26.00 H Glucose 83 Calculated Osmolality 272.8 L Calcium 8.5 Magnesium 2.2 Urine Color Yellow Urine Appearance Clear Urine pH 6.0 Ur Specific [place] 1.036 H Urine Protein Negative Urine Glucose (UA) Negative Urine Ketones Negative Urine Blood Negative Urine Nitrate Negative Urine Bilirubin Negative Urine Urobilinogen 2.0 H Urine Leukocytes Negative Urine RBC 1 Urine WBC 4 Ur Squamous Epith Cells Few Urine Bacteria Moderate Urine Mucus Occasional Ur Culture Indicated? Not indicated Specialty Discharge - Follow Up or Referrals
--- NOTE | 2016-08-12 11:49 | Cardiology Progress Note ---
Assessment and Plan (1) Left ventricular thrombus Status: Acute Assessment and plan: SEE PLAN OF CARE LISTED BELOW Current Visit: Yes (2) History of pacemaker Status: Acute Assessment and plan: SEE PLAN OF CARE LISTED BELOW Current Visit: Yes (3) Hypothyroidism Status: Chronic Assessment and plan: SEE PLAN OF CARE LISTED BELOW Current Visit: Yes (4) Ventricular tachycardia Status: Acute Assessment and plan: SEE PLAN OF CARE LISTED BELOW Current Visit: Yes (5) Sarcoid Status: Chronic Assessment and plan: SEE PLAN OF CARE LISTED BELOW Current Visit: No (6) Depression Status: Chronic Assessment and plan: SEE PLAN OF CARE LISTED BELOW Current Visit: Yes Cardiology - PN: Subj Interval history: Crochet Machine Operator: Dr. Garcia SUMMARY -Ms. Gallegos, 70-year-old female patient was directly admitted from the cardiovascular [facility] August 102016. She was discharged from [facility] August 09, 2016 after having pacemaker implantation for complete heart block. Her device was interrogated at the cardiovascular [facility] which demonstrated appropriate pacemaker function, but also an episode of ventricular tachycardia. Echocardiogram was performed which demonstrated an ejection fraction of 25% with a possible LV thrombus. Subsequently, patient was directly admitted to [facility]. She underwent cardiac catheterization yesterday per Dr. Mendenhall to rule out cardiac ischemia as primary cause of her cardiac arrhythmias. Her heart catheterization revealed only mild atherosclerosis of the coronary arteries without significant obstructive disease. Now that underlying coronary artery disease has been ruled out, patient's device will be upgraded to ICD tomorrow per Dr. Garcia for secondary prevention. July - Patient was seen and examined on telemetry unit. She has done well overnight and has been without complications. She denies chest pain, heaviness and tightness. legal counsel has been reviewed. She did have a 4 beat run of nonsustained ventricular tachycardia earlier this morning. Patient reports intermittent episodes of heart racing. Right groin is soft without bleeding, hematoma and bruit. Labs have been reviewed and are overall unremarkable. Patient has been mildly hypotensive this hospitalization. Because of that, her ARB has been put on hold. Will continue to monitor her blood pressure and attempt to reinitiate this once her blood pressure will allow. Patient will be kept n.p.o. after midnight and will plan for upgrade of her device tomorrow per Dr. Garcia. We will continue to monitor closely on the ball sorter overnight. I will discuss with Dr. Dubois and await his additional recommendations. ASSESSMENT/PLAN: 1. VENTRICULAR TACHYCARDIA - Episode of ventricular tachycardia was noted upon patient's pacemaker interrogation. Now that underlying coronary artery disease has been ruled out, patient's device will be upgraded to ICD tomorrow per Dr. Garcia for secondary prevention. This will be performed tomorrow afternoon per Dr. Garcia. Patient will be kept n.p.o after midnight. 2. LV THROMBUS - At this time we will continue to bridge with therapeutic dose of Lovenox. This will be discontinued after tonight's dose in preparation for tomorrow's procedure. After procedure tomorrow, patient will need to be transitioned to p.o. anticoagulation. I will defer further management of this to patient's primary technical solution architect, Dr. Garcia. 3. ISCHEMIC CARDIOMYOPATHY -most recent ejection fraction noted to be 25% per recent echo earlier this week. Patient's device will be upgraded tomorrow to ICD in order to provide secondary prevention. Patient is on YOUNG inhibitor at this time as her blood pressure will not allow. Patient has been on mildly hypotensive this admission. We will continue to monitor this and initiate YOUNG inhibitor or ARB once her blood pressure will allow. Continue beta -jesus manuel with hold parameters. 4. HYPOTHYROIDISM - Continue Synthroid. 5. DEPRESSION - Clinically stable. Continue current plan of care with anti- depressants. 6. SARCOID - Clinically stable. Exam (Progress Note) - Constitutional Vitals: Period Temp Pulse Resp BP Sys/Sanchez Pulse Ox Last 24 Hr 96.9 F-98.5 F 60-84 16-18 81-112/42-64 90-95 Exam: General: Appears well with no apparent distress. Pleasant and cooperative. Appears comfortable. HEENT: PERRL, normocephalic, atraumatic. Mucous membranes moist. No jaundice noted. Conjunctiva moist and clear, sclerae anicteric Neck: No JVD/HJR, no thyromegaly or lymphadenopathy noted. No carotid bruit appreciated Cardiac: Regular rate and rhythm. No murmur rub or gallop. Lungs: Clear to auscultation without accessory muscle use to assist the respiratory pattern. Not requiring oxygen. Abdomen: Soft, bowel sounds normoactive. Nontender and nondistended. No abdominal bruit or thrill noted. No masses noted. Extremities: No clubbing, cyanosis noted. No edema noted. Upper extremity pulses 2+. Lower extremity pulses 2+. Capillary refill less than 3 seconds. Right groin is soft, without bleeding, hematoma and bruit. Distal pulses present. Skin: No unusual lesions or rashes. No skin breakdown appreciated. Neuro: Awake, alert and oriented 3. Moves all extremities well without hemiparesis or paralysis. No essential tremor is appreciated. Result/EKG - Labs CBC & BMP: 08/12/16 04:55 08/12/16 04:55 Lab Results: I have reviewed the past 24 hour labs Labs: Laboratory Results - last 24 hr 08/11/16 08/12/16 08/12/16 20:25 04:55 04:55 WBC 8.5 RBC 4.48 Hgb 13.0 Hct 40.0 MCV 89.3 MCH 29 MCHC 32.5 RDW 13.4 Plt Count 158 MPV 11.5 Neut % (Auto) 80.1 H Lymph % (Auto) 5.8 L [place] % (Auto) 12.5 Eos % (Auto) 0.7 Baso % (Auto) 0.4 Neut # (Auto) 6.8 Lymph # (Auto) 0.5 L [place] # (Auto) 1.1 H Eos # (Auto) 0.1 Baso # (Auto) 0.0 Immature Gran % 0.5 Nucleated RBC % 0.0 Immature Gran # 0.04 Nucleated RBCs # 0.00 Sodium 137 Potassium 3.8 Chloride 102 Carbon Dioxide 25 Anion Gap 13.8 BUN 16 Creatinine 0.60 GFR Calculation 102 BUN/Creatinine Ratio 26.00 H Glucose 83 Calculated Osmolality 272.8 L Calcium 8.5 Magnesium 2.2 Urine Color Yellow Urine Appearance Clear Urine pH 6.0 Ur Specific [place] 1.036 H Urine Protein Negative Urine Glucose (UA) Negative Urine Ketones Negative Urine Blood Negative Urine Nitrate Negative Urine Bilirubin Negative Urine Urobilinogen 2.0 H Urine Leukocytes Negative Urine RBC 1 Urine WBC 4 Ur Squamous Epith Cells Few Urine Bacteria Moderate Urine Mucus Occasional Ur Culture Indicated? Not indicated Specialty Discharge - Follow Up or Referrals
--- NOTE | 2016-08-12 17:10 | Event Note ---
I came by to see the patient for a courtesy visit. She is doing well. I discussed the planned procedure tomorrow for a upgrade from a pacemaker to a biventricular defibrillator. Although the patient and family questions were answered. We anticipate doing this late tomorrow morning or early afternoon. She can be monitored overnight and hopefully discharged home the following day.
[2016-08-12] MEDS ORDERED: AMIODARONE INJ 450 MG in DEXTROSE 5% 241 ML IV SCH (21:00)
[2016-08-13 05:09] LABS: Basophils % 0.3 % (0.0-0.8); Eosinophils # 0.3 10*3/uL (0.0-0.87); Eosinophils % 3.9 % (0.00-10.9); Hemoglobin 12.3 GM/DL (12.0-16.0); Immature Granulocytes % 0.3 %; Immature Granulocytes Absolute 0.02 #; Lymphocytes # 0.6 10*3/uL (1.4-4.0); Lymphocytes % 9.3 % (21.3-54.2); Mean Corpuscular HGB Conc 33.2 GM/DL (32-36); Mean Corpuscular Hemoglobin 29 PG (27-34); Mean Corpuscular Volume 88.1 FL (87-102); Mean Platelet Volume 10.5 FL (9.6-12.0); Monocytes # 0.8 10*3/uL (0.11-0.8); Monocytes % 13.1 % (1.7-12.7); Neutrophils # 4.7 10*3/uL (1.4-7.4); Neutrophils % 73.1 % (38.7-73.9); Platelet Count 169 T/CUMM (130-400); Red Cell Distribution Width 13.4 % (9.3-17.3); White Blood Count 6.4 T/CUMM (4-12)
[2016-08-13 05:14] LABS: PT Patient Result 10.7 SECS
[2016-08-13] MEDS: AMIODARONE INJ 450 MG in DEXTROSE 5% 241 ML IV SCH ×2 (05:14→19:27)
[2016-08-13 05:42] LABS: Magnesium 2.4 MG/DL (1.8-2.4); Osmolality,Calculated 280.4 MOS/KG (273-304); Potassium 3.5 MMOL/L (3.5-5.1)
[2016-08-13] MEDS: LEVOTHYROXINE 100 MCG TABLET PO SCH (06:39)
--- NOTE | 2016-08-13 07:09 | EKG Report ---
Stationary ECG Study [facility] Test Date: 08/13/2016 7:09:24 AM Pat Name: JOVANY ELLER Department: Room: 276 Gender: F Rn Emergency Room: LAURIE : 1945 Requested by: Jackelin Killian Order Number: [id number] Reading MD: DAYLIN COLBERT Intervals [place] Rate: 69 P: 94 ND: 185 QRS: 225 QRSD: 186 T: -23 QT: 473 QTc: 492 Interpretive Statements SINUS RHYTHM WITH ELECTRONIC VENTRICULAR PACEMAKER PVC Electronically Signed On 08-13-16 12:16:22 CDT by DAYLIN COLBERT [email or web address]
[2016-08-13] MEDS ORDERED: VANCOMYCIN 500 MG VIAL IRRIG ONE (08:00)
[2016-08-13] MEDS ORDERED: VANCOMYCIN INJ 500 MG in SODIUM CHLORIDE 0.9% 100 ML IV ONE (08:00)
--- NOTE | 2016-08-13 09:06 | Cardiology Progress Note ---
Cardiology - PN: Subj Interval history: Cardiology note No shortness of breath. Telemetry shows sinus rhythm ventricular pacing. Blood pressure 126/76 Clear lungs Regular rhythm no gallop Impression Sarcoidosis status post Medtronic dual-chamber pacemaker for third-degree heart block Nonischemic cardiomyopathy EF 25% Patent coronary Nonsustained VT Plan Upgrade today to biventricular ICD Exam (Progress Note) - Constitutional Vitals: Period Temp Pulse Resp BP Sys/Sanchez Pulse Ox Last 24 Hr 97.3 F-100.2 F 61-85 18-20 84-97/54-63 91-98 Result/EKG - Labs CBC & BMP: 08/13/16 04:55 08/13/16 04:55 Labs: Laboratory Results - last 24 hr 08/13/16 08/13/16 08/13/16 04:55 04:55 04:55 WBC 6.4 RBC 4.20 Hgb 12.3 Hct 37.0 MCV 88.1 MCH 29 MCHC 33.2 RDW 13.4 Plt Count 169 MPV 10.5 Neut % (Auto) 73.1 Lymph % (Auto) 9.3 L [place] % (Auto) 13.1 H Eos % (Auto) 3.9 Baso % (Auto) 0.3 Neut # (Auto) 4.7 Lymph # (Auto) 0.6 L [place] # (Auto) 0.8 Eos # (Auto) 0.3 Baso # (Auto) 0.0 Immature Gran % 0.3 Nucleated RBC % 0.0 Immature Gran # 0.02 Nucleated RBCs # 0.00 INR 1.0 PT Patient/Control Mix 10.7 Sodium 140 Potassium 3.5 Chloride 104 Carbon Dioxide 27 Anion Gap 12.5 BUN 16 Creatinine 0.70 GFR Calculation 97 BUN/Creatinine Ratio 22.00 H Glucose 118 H Calculated Osmolality 280.4 Calcium 8.0 L Magnesium 2.4 Specialty Discharge - Follow Up or Referrals
[2016-08-13] MEDS ORDERED: LIDOCAINE 1%/EPI INJ 20 ML VIAL ONE ×2 (09:16→09:20)
[2016-08-13] MEDS ORDERED: HYDROmorphone 2 MG/1 ML VIAL ONE ×2 (09:16→10:47)
[2016-08-13] MEDS ORDERED: VANCOMYCIN 500 MG VIAL ONE (09:16)
[2016-08-13] MEDS ORDERED: MIDAZOLAM 2 MG/2 ML VIAL ONE ×2 (09:16→10:08)
[2016-08-13] MEDS ORDERED: diphenhydrAMINE CAP 25 MG CAPSULE ONE (09:19)
[2016-08-13] MEDS ORDERED: DIAZEPAM 5 MG TABLET ONE (09:19)
[2016-08-13] MEDS ORDERED: TISSUE ADHESIVE 1 EACH APPLICATOR TOP ONE (11:05)
--- NOTE | 2016-08-13 11:21 | Cardiac Defibrillator ---
- Preoperative diagnosis Date of Procedure:: 08/13/16 Preop Diagnosis: sustained ventricular tacharrhythmia, either spontaneous or induced by electrophysiology study, not associated with an acute PA &not due to transient reversible cause Post-op diagnosis: same Procedure: The patient presented to the hospital with third-degree heart block, prolonged pauses, and profound symptomatic bradycardia last weekend. She required dual- chamber pacemaker implant at that time. After she was discharged home, she had another near syncopal event. Interrogation of the pacemaker identified sustained ventricular tachycardia as the source of this episode. Further workup revealed a severe cardiomyopathy with ventricular dyssynchrony and wide QRS. The patient is now getting upgraded to a biventricular internal cardiac defibrillator. Procedures performed 1. Percutaneous left subclavian venotomy with sheath placement 2. Placement of right ventricular lead with threshold testing 3. Placement of left ventricular pacing lead with threshold testing 4. Placement of biventricular internal cardiac defibrillator for cardiac resynchronization therapy 5. Removal of the previously placed right ventricular pacemaker lead. Of note, this is an MRI compatible system. The patient had sustained ventricular tachycardia and a severe cardiomyopathy with ventricular dyssynchrony and needed internal cardiac defibrillator implant with cardiac resynchronization. After informed consent was obtained was taken to catheter prepped and draped in usual sterile manner. We used minimal sedation for this case. We opened the previous pacemaker pocket and remove the pacemaker from the pocket but did not yet disconnect the leads because the patient is pacemaker dependent. We placed a J-tipped wires and a wholly wire in the left subclavian vein using a modified Seldinger technique in the usual fashion. Using a safe sheaths, we placed a Medtronic 1828N23 ventricular lead into the right ventricular apex and secured it with a helical coil. Serial number on the ventricular lead is [id number]. Adequate capture and sensing thresholds were achieved. We then used a Welliko attain multipurpose coronary sinus guide to engage the coronary sinus and placed a Medtronic 4298 88 cm left ventricular lead in the middle cardiac vein. Excellent capture and sensing thresholds were achieved. Serial number on the left ventricular lead was [id number]. She already had a a Medtronic 5076-52 centimeter lead in the atrium from the previously placed pacemaker. Serial number on the atrial lead is [id number]. After the sheaths had been removed, we sutured the leads to the pocket floor using Ethibond suture. We then rinsed the pocket with antibiotic solution and then connected the leads to a Medtronic VIVA Quad CRTD [id number] defibrillator with serial number [id number]. After the device give been connected to the leads, it was placed in a TYRX pouch and then it was placed in the pocket and sutured pocket floor with Ethibond suture. We did not perform defibrillation threshold testing because the patient had a known thrombus in the left ventricular apex. We then closed the pocket 2 layers using Vicryl suture. We then applied a topical adhesive followed by Steri-Strips and a dressing. There were no apparent complications during the procedure. The patient remained stable throughout the procedure and will now be transferred back to her room for recovery. Anesthesia: minimal conscious sedation Surgeon / Physician: Froilan Garcia Estimated blood loss: minimal Specimens: none sent Condition: stable Disposition: floor - Medications / Follow-up
--- NOTE | 2016-08-13 11:46 | EKG Report ---
Stationary ECG Study [facility] Test Date: 08/13/2016 11:46:04 AM Pat Name: JOVANY ELLER Department: Room: 276 Gender: F Orthopedic Nurse Practitioner: LAURIE : 1945 Requested by: Lucero Mcgovern Order Number: [id number] Reading MD: DAYLIN COLBERT Intervals [place] Rate: 65 P: 65 ND: 139 QRS: 252 QRSD: 172 T: 38 QT: 468 QTc: 479 Interpretive Statements SINUS RHYTHM WITH ELECTRONIC VENTRICULAR PACEMAKER Electronically Signed On 08-13-16 12:21:39 CDT by DAYLIN COLBERT [email or web address]
--- NOTE | 2016-08-13 11:47 | XRay Report ---
Exam: XR chest 1V portable Date: 08/13/2016 11:11 AM Indication: Lead placement Comparison: 08/10/2016 Technical: AP portable Findings: Cardiomegaly present with a left-sided cardiac pacing device with atrial ventricular and coronary sinus leads suspected. Previous axillary dissection. Tubing superimposes the right neck and extends towards the right superior aspect the superior vena cava. No obvious infiltrate or effusion. Mediastinum is otherwise intact. Bony structures are unremarkable. Spur formation along the inferior aspect of the right clavicle Impression: 1. Mild cardiomegaly without decompensation 2. Stable position a cardiac pacing device 3. Small area of tubing over the right neck and chest 4. Previous axillary dissection. PROCEDURE INTERPRETED AT [facility] DEPARTMENT OF RADIOLOGY Final Report Signed by: Dr. Brandon Watson
[2016-08-13] MEDS ORDERED: SODIUM CHLORIDE 0.9% 1,000 ML IV SCH (13:30)
[2016-08-13] MEDS: ASPIRIN CHEW 81 MG TABLET PO SCH (16:54)
[2016-08-13] MEDS: PANTOPRAZOLE 40 MG TABLET PO SCH ×2 (16:54→21:09)
[2016-08-13] MEDS: buPROPion SR 150 MG TABLET PO SCH (16:54)
[2016-08-13] MEDS: OXYBUTYNIN 5 MG TABLET PO SCH (16:54)
[2016-08-13] MEDS: METOPROLOL TARTRATE 25 MG TABLET PO SCH ×2 (16:54→21:10)
[2016-08-13] MEDS ORDERED: AMIODARONE INJ 450 MG in DEXTROSE 5% 241 ML IV SCH (21:30)
[2016-08-14] MEDS: ACETAMINOPHEN 325 MG TABLET PO PRN (04:38)
[2016-08-14 06:06] LABS: Basophils % 0.1 % (0.0-0.8); Eosinophils # 0.2 10*3/uL (0.0-0.87); Eosinophils % 3.1 % (0.00-10.9); Hematocrit 37.4 VOL% (35.7-47.0); Hemoglobin 12.1 GM/DL (12.0-16.0); Immature Granulocytes % 0.3 %; Immature Granulocytes Absolute 0.02 #; Lymphocytes # 0.5 10*3/uL (1.4-4.0); Lymphocytes % 6.5 % (21.3-54.2); Mean Corpuscular HGB Conc 32.4 GM/DL (32-36); Mean Corpuscular Hemoglobin 29 PG (27-34); Mean Corpuscular Volume 88.8 FL (87-102); Mean Platelet Volume 11.7 FL (9.6-12.0); Monocytes # 0.7 10*3/uL (0.11-0.8); Monocytes % 10.2 % (1.7-12.7); Neutrophils # 5.7 10*3/uL (1.4-7.4); Neutrophils % 79.8 % (38.7-73.9); Platelet Count 194 T/CUMM (130-400); Red Blood Count 4.21 MC/CUMM (3.8-5.5); Red Cell Distribution Width 13.6 % (9.3-17.3); White Blood Count 7.1 T/CUMM (4-12)
[2016-08-14 06:32] LABS: Calcium 8.3 MG/DL (8.5-10.1); Magnesium 2.3 MG/DL (1.8-2.4); Osmolality,Calculated 274.8 MOS/KG (273-304)
[2016-08-14 06:53] LABS: Hypochromasia Slight; Ovalocytes Slight; Platelet Estimate Normal
[2016-08-14] MEDS: LEVOTHYROXINE 100 MCG TABLET PO SCH (07:02)
[2016-08-14] MEDS: buPROPion SR 150 MG TABLET PO SCH (08:28)
[2016-08-14] MEDS: PANTOPRAZOLE 40 MG TABLET PO SCH (08:33)
[2016-08-14] MEDS: ASPIRIN CHEW 81 MG TABLET PO SCH (08:33)
[2016-08-14] MEDS: OXYBUTYNIN 5 MG TABLET PO SCH (08:45)
[2016-08-14] MEDS: METOPROLOL TARTRATE 25 MG TABLET PO SCH (08:45)
--- NOTE | 2016-08-14 08:47 | EKG Report ---
Stationary ECG Study [facility] Test Date: 08/14/2016 8:46:03 AM Pat Name: JOVANY ELLER Department: Room: 276 Gender: F Business Applications Analyst: : 1945 Requested by: Lucero Mcgovern Order Number: [id number] Reading MD: LORI TRAVIS Intervals [place] Rate: 69 P: 86 NE: 166 QRS: 267 QRSD: 177 T: -10 QT: 475 QTc: 494 Interpretive Statements ELECTRONIC VENTRICULAR PACEMAKER ABNORMAL RHYTHM ECG NORMAL SINUS RHYTHM Electronically Signed On 08-15-16 12:53:46 CDT by LORI TRAVIS [email or web address]
[2016-08-14] MEDS ORDERED: APIXABAN 5 MG TABLET PO SCH (09:00)
--- NOTE | 2016-08-14 09:59 | Discharge Summary ---
Hospital Course - Hospital Course Hospital Course: Patient is a 70-year-old female with sarcoidosis who was recently admitted to the hospital with syncopal episodes, found to have profound third-degree AV block. She underwent permanent pacemaker implantation, and was discharged home on August 09, 2016. She reports to the clinic the following day with complaints of tachypalpitations and associated diaphoresis, and device interrogation revealed ventricular tachycardia episodes that were sustained for up to 30 seconds. Echocardiogram demonstrated a severe cardiomyopathy with an ejection fraction of 25% and left ventricular thrombus. She was admitted to the hospital for further evaluation and treatment. She underwent left heart catheterization August 11, 2016 which demonstrated no significant epicardial stenosis. In the hospital she was somewhat hypotensive and there was difficulty introducing beta-jesus manuel therapy, even though her ARB was withheld. Her hemodynamics rendered her intolerant of YOUNG inhibitor or ARB. She did develop some subsequent frequent episodes of nonsustained ventricular tachycardia which were successfully treated with amiodarone therapy. On July she underwent upgrade from her pacemaker to biventricular ICD by Dr. Garcia. Postoperatively she is doing well without any acute complaints and is ready to be discharged home. Upon admission she did have some jaw pain and some chest pain. She ruled out for myocardial infarction. She was treated with proton pump inhibitor therapy and this seemed to improve her symptoms. Of note she appeared to be slightly hyperthyroid, and her levothyroxine dose was decreased to 100 mcg p.o. daily as this may have been contributing to her arrhythmias. Additionally, she was initiated on Eliquis therapy (although she was bridged with Lovenox during her hospital stay) for treatment of her LV thrombus. She is to take 10 mg twice daily for 1 week, then 5 mg p.o. twice daily as maintenance therapy. She also had some low-grade temperatures during her hospital stay which appeared to be self-limited. Urinalysis and blood cultures were negative. This may be related to underlying sarcoidosis or pulmonary nodules. She is to keep her regular scheduled follow-up with Dr. Garcia. Specialty Discharge - Follow Up or Referrals Discharge Plan - Discharge Data Disposition: Disch To Home/Self Care Condition at Discharge: Stable Discharge Diet: low salt diet Activity: no lifting (For 1 week), other (No raising the left arm above your head for 1 month) Hygiene: may shower - Discharge Medications New Amiodarone Tab [Cordarone Tab] 200 mg PO DAILY #30 tablet Apixaban [Eliquis] 10 mg PO BID #14 tablet Levothyroxine Tab [Synthroid Tab] 100 mcg PO DAILY@0700 #30 tablet Pantoprazole Tab [Protonix Tab] 40 mg PO DAILY #30 tablet Metoprolol Succinate Xl [Toprol Xl] 25 mg PO DAILY #30 tablet Apixaban [Eliquis] 5 mg PO BID #60 tablet Continue buPROPion HCl [Bupropion HCl Sr] 150 mg PO DAILY Oxybutynin [Ditropan] 5 mg PO DAILY Betamethasone Valerate [Betamethasone Valerate 0.1% Lotion] 1 applic TOP BID PRN PRN Reason: Agitation Metronidazole 1% Gel [Metrogel 1% Gel] 1 applic TOP DAILY PRN PRN Reason: Pain Discontinued Losartan/Hctz 50-12.5 [Hyzaar 50-12.5] 1 tablet PO DAILY Meloxicam 1 tablet PO DAILY PRN PRN Reason: Pain Levothyroxine Tab [Synthroid Tab] 137 mcg PO DAILY@0700 - Follow Up or Referral Follow Up: Froilan Garcia MD [Physician] - - Forms/Instructions Instructions: Coronary Artery Disease (GEN), Left Heart Catheterization (DC), Heart Healthy Diet (GEN) Additional Discharge Instructions: Keep regular appointments as scheduled from prior discharge with Dr. Garcia and the device clinic. Eliquis should be taken 10 mg p.o. twice daily for 1 week, then initiate 5 mg p.o. twice daily. Exam - Constitutional Vitals: Period Temp Pulse Resp BP Sys/Sanchez Pulse Ox Last 24 Hr 98.2 F-101.3 F 60-95 16-60 89-114/51-71 93-98 Exam: General appearance: normal weight, no acute distress - Head Head exam: Present: normal inspection, normocephalic, atraumatic. Absent: hematoma, laceration - Eye Eye exam: Present: EOMI. Absent: conjunctival injection, nystagmus, periorbital swelling, scleral icterus, laceration to eyelids Pupils: Present: PERRL. Absent: constricted, dilated, fixed, irregular, unequal - ENT ENT exam: Present: normal exam, normal external ear exam - Neck Neck exam: Present: normal inspection. Absent: lymphadenopathy, meningismus, tenderness, thyromegaly - Respiratory Respiratory exam: Present: clear to auscultation bilaterally. Absent: accessory muscle use, chest wall tenderness - Cardiovascular Cardiovascular exam: Present: regular rate and rhythm. Absent: carotid bruit, gallop, JVD, rubs - GI/Abdominal GI/Abdominal exam: Present: normal bowel sounds, soft. Absent: distended, firm , guarding, hernia, mass, tenderness, rebound. - Extremities Exam Extremities exam: Present: normal inspection, normal capillary refill. Absent: calf tenderness, edema - Back Exam Back exam: Present: normal inspection. Absent: muscle spasm, vertebral tenderness - Neurological Exam Neurological exam: Present: alert, oriented X3, grossly intact without resting or intention tremor - Psychiatric Psychiatric exam: Present: normal affect, normal mood - Skin Skin exam: Present: normal color, warm, dry, intact. Absent: cyanosis, diaphoretic, rash, urticaria The left chest wall demonstrates the device implantation site to be intact with some surrounding ecchymosis but no significant erythema, exudates, calor. Discharge Results Procedures and tests throughout hospitalization: Pending Orders 08/11/16 17:37 Blood Culture Routine 08/13/16 09:14 CL pacemaker Routine 08/14/16 04:00 XR chest 2V IN AM 08/15/16 04:00 BMP w/ Mg [Basic Metabolic Panel w/Mg] IN AM Comp Blood Count Auto Diff IN AM 08/16/16 04:00 BMP w/ Mg [Basic Metabolic Panel w/Mg] IN AM CBC [Comp Blood Count Auto Diff] IN AM Labs on day of discharge: Labs from last 24 hours 08/14/16 08/14/16 04:29 04:29 WBC 7.1 RBC 4.21 Hgb 12.1 Hct 37.4 MCV 88.8 MCH 29 MCHC 32.4 RDW 13.6 Plt Count 194 MPV 11.7 Neut % (Auto) 79.8 H Lymph % (Auto) 6.5 L [place] % (Auto) 10.2 Eos % (Auto) 3.1 Baso % (Auto) 0.1 Neut # (Auto) 5.7 Lymph # (Auto) 0.5 L [place] # (Auto) 0.7 Eos # (Auto) 0.2 Baso # (Auto) 0.0 Immature Gran % 0.3 Nucleated RBC % 0.0 Immature Gran # 0.02 Nucleated RBCs # 0.00 Platelet Estimate Normal Hypochromasia Slight Ovalocytes Slight Morphology Comment Sodium 137 Potassium 4.0 Chloride 101 Carbon Dioxide 28 Anion Gap 12.0 BUN 18 Creatinine 0.70 GFR Calculation 96 BUN/Creatinine Ratio 25.00 H Glucose 102 Calculated Osmolality 274.8 Calcium 8.3 L Magnesium 2.3 Preliminary micro results at discharge 08/11/16 17:37 Blood Culture - Preliminary Blood No growth at 1 day 08/11/16 17:37 Blood Culture - Preliminary Blood No growth at 1 day DS: Provider Date of admission: 08/11/16 09:15 Primary care physician: Ilan Glass MD Attending physician on admission: Froilan Garcia MD Consults: 08/11/16 09:48 Consult to Cardiac Rehabilitation [CONS] Routine Reason for Cardiac Rehabilitation: Risk Factor Modification Discharging clinician: Marcie Mendenhall, Expected date of discharge: 08/14/16
--- NOTE | 2016-08-14 10:06 | XRay Report ---
History: Lead placement Date: 08/14/2016 Study: Chest x-ray PA and lateral Comparison exam: August 13, 2016 chest x-ray There is no evidence of a pneumothorax. The left subclavian multiple lead pacemaker/defibrillator device is unchanged. There is stable cardiomegaly. The mediastinal contour is unchanged. The pulmonary vasculature is not engorged. There is minimal subsegmental atelectasis in the lung bases. The lungs are otherwise clear. There is minimal bilateral pleural effusion. Osseous structures are unchanged. Surgical clips overlie the right axilla. Impression: No evidence of a pneumothorax. Mild subsegmental atelectasis in the lung bases and minimal bilateral pleural effusion PROCEDURE INTERPRETED AT [facility] DEPARTMENT OF RADIOLOGY Final Report Signed by: Dr. Aliyah Hall
[2016-08-14 13:13] VITALS: BP 119/69
--- NOTE | 2016-08-20 02:47 | Pathology Report from [facility] ---
[facility] ACCESSION # : El PATIENT NAME : [id number] ORDERING DR : Froilan Garica MD CLINICAL HX: Bi-ventricular ICD device upgrade POST-OP DX: Same SPECIMEN INFO: #1 Pacemaker/generator device #2 RV lead GROSS DESCRIPTION: #1 Received fresh labeled with the patients name MARTY ELLER and consists of a pacemaker generator, serial number [id number]. Gross only.#2 Received fresh labeled with the patients name MARTY ELLER and consists of an RV lead. Gross only. DIAGNOSIS FOR MARTY [id number]: #1 Pacemaker generator, gross only.#2 RV lead , gross only. COLLECTED DATE: 08/13/2016 [facility] REPORT DATE: 08/16/2016 ELECTRONICALLY SIGNED BY: Jessie Hargrove M.D. 08/16/2016 - JOSE ALFREDO
== END 2016-08-14 13:33 | disposition home or self-care (01) | DRG 225 ==
LOC: N.RAD 12:57 → N.TELES 16:51
PROVIDERS: ADMIT Internal Medicine Cardiovascular Disease; ATTEND Internal Medicine Cardiovascular Disease